=== PATIENT | male | born 1955 | race Caucasian/White ===

== ENCOUNTER 2023-12-18 06:21 | Emergency (ER) | payer OTHER, SELFPAY ==
[2023-12-18] VITALS (8 sets, daily range): BP systolic 121–126; BP diastolic 82–83; PULSE 62–86; TEMP 36.9; O2SAT 94–96; BMI 31.6
--- NOTE | 2023-12-18 06:29 | ECG_ITS ---
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
--- NOTE | 2023-12-18 06:38 | XR_ITS ---
The [address] [address] Patient Name: AUGIE LEAL MRN: [id number] date: 1955 Sex: M Assigned Patient Location: ED.MAIN Current Patient Location: ER Accession/Order Number: [id number] Exam Date: 12/18/2023 06:55 Report Date: 12/18/2023 07:12 At the request of: KEENA MARKER Procedure: XR chest 1V EXAMINATION: XR chest 1V HISTORY: CP COMPARISON: No relevant comparison available. FINDINGS: LUNGS: Mild opacities scattered throughout the right lung, more notable within right lung base. Mild bronchial wall thickening within the central regions bilaterally. VASCULATURE: No increased pulmonary vasculature. PLEURA: No pneumothorax, effusion, or pleural thickening. CARDIAC: No cardiomegaly or cardiac silhouette abnormality. MEDIASTINUM: No visible mass or adenopathy. BONES: No fracture or visible bone lesion. OTHER: Defibrillator pad overlying lower left chest. XR/XR chest 1V IMPRESSION: 1. Underexpanded lungs with diffuse mild right pulmonary infiltrates versus atelectasis. 2. Possible mild bronchiolitis. Electronically authenticated by: OSORIO BUSTILLOS Date: 12/18/2023 07:12
[2023-12-18 06:45] LABS: Basophils Percent Auto 0.2 % (0.2-2.0); Eosinophils Percent Auto 0.1 % (0.9-7.0); Hematocrit 41.6 % (42.0-54.0); Hemoglobin 14.2 g/dL (14.0-18.0); Immature Granulocytes Abs Auto 0.04 10^3/uL (0.00-0.03); Immature Granulocytes Pct Auto 0.4 % (0.0-0.5); Lymphocytes Percent Auto 9.1 % (20.5-60.0); Mean Corpuscular HGB Conc 34.1 g/dL (29.9-35.2); Mean Corpuscular Hemoglobin 31.7 pg (25.9-34.0); Mean Corpuscular Volume 92.9 fL (80.0-94.0); Mean Platelet Volume 9.5 fL (9.5-13.5); Monocytes Percent Auto 9.8 % (1.7-12.0); Neutrophils Absolute Auto 8.4 10^3/uL (1.4-6.5); Neutrophils Percent Auto 80.4 % (43.0-75.0); Platelet Count 217 10^3/uL (150-450); Red Blood Count 4.48 10^6/uL (4.70-6.10); Red Cell Distribution Width 12.8 % (11.0-15.0); White Blood Count 10.5 10^3/uL (4.0-11.0)
--- NOTE | 2023-12-18 06:46 | ED.GENADUL1 ---
HPI HPI - General Adult General Chief complaint: Neck Pain/Injury Stated complaint: neck chest pain Time Seen by Provider: 12/18/23 06:29 Source: patient and family Mode of arrival: walk-in Limitations: no limitations History of Present Illness HPI narrative: This 68 -year-old male presents for evaluation of chest pain that has been present for the past 2 days. It radiates into his back and both shoulders. The patient states that he was in [facility] turkey hunting earlier this week. He was down there for 3 days and he was sleeping in a tent. He states that the tent was called and he ended up sleeping in his car. He thinks that he strained his chest and back while sleeping in his eye. On his way back home from [facility] he started experiencing pain in his chest and shoulders. He has had this pain for the past 48 hours. This morning he started feeling short of breath and came to the emergency department. In the meantime he called his family physician and was prescribed pain medication and a muscle relaxant. The patient has mild nausea. He rates his pain as a 10 out of 10. He denies any dizziness or diaphoresis. He has no abdominal pain. He has no lower extremity pain or swelling. Related Data Allergies Allergy/AdvReac Type Severity Reaction Status Date / Time No Known Drug Allergies Allergy Verified 12/18/23 06:31 Opioid HPI Opioid Management Most Recent Opioid Data: No Data to Display Review of Systems ROS Status of ROS 10 or more systems reviewed and unremarkable except as noted in history and below Exam Narrative Exam Narrative: Nurses note and vital signs reviewed and patient is not hypoxic. General: Alert nontoxic male resting currently on the stretcher, no respiratory distress Skin: Warm, dry, no pallor noted. There is no rash noted. Head: Normocephalic, atraumatic Eye: Normal conjunctiva, no drainage, EOMI. PERRL Ears, Nose, Mouth, and Throat: oral mucosa is moist. Nares patent. Mouth without vesicles. Ear canals patent. Tm's without Erythema Cardiovascular: Regular Rate and Rhythm S1S2, no murmurs,rubs or gallops appreciated, pulses are brisk and equal Respiratory: Patient is in no distress, no accessory muscle use, lungs are clear to auscultation, no wheezing, rales or rhonchi Back: non-tender, no CVA tenderness bilaterally to percussion. GI: Normal bowel sounds, no tenderness to palpation, no masses appreciated. No rebound, guarding, or rigidity noted. Musculoskeletal: The patient has no evidence of calf tenderness, no pitting edema, symmetrical pulses noted bilaterally Neurological: A&O x4, normal speech, resting tremor Psychiatric: Cooperative Constitutional Vital Signs, click to edit/add: Last Vital Signs Temp 98.4 F 12/18/23 06:25 Pulse 62 12/18/23 06:25 Resp 20 12/18/23 06:25 BP 126/82 12/18/23 06:25 Pulse Ox 95 12/18/23 06:25 O2 Del Method Room Air 12/18/23 06:25 Course Vital Signs Vital signs: Vital Signs Temperature 98.4 F 12/18/23 06:25 Pulse Rate 62 12/18/23 06:25 Respiratory Rate 20 12/18/23 06:25 Blood Pressure 126/82 12/18/23 06:25 Pulse Oximetry 95 12/18/23 06:25 Oxygen Delivery Method Room Air 12/18/23 06:25 Temperature 98.4 F 12/18/23 06:25 Pulse Rate 62 12/18/23 06:25 Respiratory Rate 20 12/18/23 06:25 Blood Pressure 126/82 12/18/23 06:25 Pulse Oximetry 95 12/18/23 06:25 Oxygen Delivery Method Room Air 12/18/23 06:25 Medical Decision Making MDM Narrative Medical decision making narrative: This 68-year-old male presents for evaluation of approximately 36-48 hours of anterior chest pain that radiates into his right shoulder area. The symptoms started after being and [place] turkey hunting. He was driving home on Friday when he started experiencing this pain. He came to the emergency department this morning after he started experiencing shortness of breath as well as this pain. He describes it as a dull aching pain 10 out of 10 that radiates into his left shoulder area and bilateral shoulders are uncomfortable. EKG done upon arrival sinus rhythm with a right bundle-branch block and ST segment elevation in leads V2 and V3 V44 and V5 consistent with acute anterior wall myocardial infarction. The case was discussed and EKG was shared with Dr. Pavel Heredia, frozen food selector at [facility], he is accepted for transfer to the cardiac physical laboratory assistant. He was medicated in emergency department with 324 mg baby aspirin, 4 of morphine, so 4 of Zofran, 180 mg of Brillinta and 5000 units of IV heparin. Pacer pads were placed on him and he was placed on the airport location manager while awaiting transfer. ECG Data Attestation: I personally reviewed and interpreted this ECG as follows: (Sinus rhythm at 80 bpm, right bundle-branch block, ST segment elevation in leads V2, V3, V4 and V5 consistent with acute anterior ST segment elevation myocardial infarction) Critical Care Time Critical Care Time Critical Care Time: Yes Total Critical Care Time: 40 Attestation: . Discharge Plan Discharge Chief Complaint: Neck Pain/Injury Clinical Impression: ST elevation (STEMI) myocardial infarction Patient Disposition: [facility] Time of Disposition Decision: 06:46 Discharge Location: [facility]
[2023-12-18] MEDS: ASPIRIN 81 MG TAB.CHEW 324 MG PO (06:48)
[2023-12-18] MEDS: HEPARIN SODIUM (PORCINE) 5,000 UNIT/ML VIAL 5000 UNIT IV (06:52)
[2023-12-18] MEDS: TICAGRELOR 90 MG TABLET 180 MG PO (06:52)
[2023-12-18] MEDS: MORPHINE SULFATE 4 MG/ML VIAL IV (06:53)
[2023-12-18] MEDS: ONDANSETRON PF 4 MG/2 ML VIAL IV (06:53)
[2023-12-18 06:58] LABS: Partial Thromboplastin Time 27.3 sec (22.3-36.2)
[2023-12-18 07:05] LABS: Alanine Aminotransferase 90 U/L (16-63); Albumin Level 3.8 g/dL (3.4-5.0); Alkaline Phosphatase 54 U/L (46-116); Anion Gap 14.3; BUN Creatinine Ratio 14.1; Bilirubin Total 1.4 mg/dL (0.2-1.0); Calcium 9.1 mg/dL (8.5-10.1); Carbon Dioxide 26.5 mmol/L (21.0-32.0); Chloride 96 mmol/L (98-107); Estimated GFR (African America >60 (>=60); Estimated GFR (Non-African Ame >60 (>=60); Globulin 3.7 g/dL; Glucose 157 mg/dL (74-106); Potassium 3.8 mmol/L (3.5-5.1); Sodium 133 mmol/L (136-145); Total Protein 7.5 g/dL (6.4-8.2)
[2023-12-18] MEDS: NITROGLYCERIN 0.4 MG BOTTLE 0.400000000000000022 MG SL (07:10)
[2023-12-18 07:24] LABS: Aspartate Amino Transferase 593 U/L (15-37)
[2023-12-18 07:25] LABS: Troponin I High Sensitivity >125000.0 pg/mL (4.0-76.1)
== END 2023-12-18 07:16 | disposition short-term general hospital (02) ==
LOC: ER 06:47
PROVIDERS: Emergency Provider Emergency Medicine; PCP Family Medicine
DX: I21.3 ST elevation (STEMI) myocardial infarction of unspecified site (principal)
CPT/HCPCS: 36415; 71045; 80053; 84484; 85025; 85730; 93005; 96374; 96375; 99285

== ENCOUNTER 2024-02-18 13:23 | Outpatient (OUT) | payer OTHER, SELFPAY ==
--- NOTE | 2024-02-18 | XR_ITS ---
The [address] [address] Patient Name: AUGIE LEAL MRN: [id number] date: 1955 Sex: M Assigned Patient Location: LAB Current Patient Location: LAB Accession/Order Number: [id number] Exam Date: 02/18/2024 13:40 Report Date: 02/18/2024 19:31 At the request of: ALEKSANDR NUNES Procedure: XR chest 2V EXAM: XR chest 2V HISTORY: cardiomyopathy, ischemic COMPARISON: 12/18/2023 TECHNIQUE: Upright PA and lateral chest x-ray FINDINGS: Interval development of a left pleural effusion. An underlying atelectasis or infiltrate at the left lung base is difficult to exclude. The heart is not enlarged and there is slight prominence of the vasculature. The right lung is essentially clear and there is no evidence of a pneumothorax. The osseous structures are grossly intact. XR/XR chest 2V IMPRESSION: There is now a left pleural effusion present, probably accompanied by a small amount of atelectasis or infiltrate. No other focal infiltrate is identified. The heart is not enlarged and there is some vascular congestion throughout. Electronically authenticated by: SIXTO ACKERMAN Date: 02/18/2024 19:31
--- OUTSIDE RECORDS SUMMARY | 2024-02-18 13:32 | XMS_ITS | CCD ---
Author Organization [facility] Care Team Providers Care Canvas Cutter Machine Name Role Phone ALEXIS TIDWELL Unavailable Unavailable ALEXIS TIDWELL Unavailable Unavailable FAVIAN EDGE Unavailable Unavailable DIANN, ALEXIS Unavailable Unavailable MARIAH CHILDERS Unavailable MD Favian Franks Primary Care Provider DO Souleymane Alexandre Admit Provider [phone] DO Souleymane Alexandre Attending Provider Favian Edge Primary Care Unavailable Souleymane Alexandre Attending Unavailable Souleymane Alexandre Admitting Unavailable Favian Edge MD Primary Care Provider Shy Spears RN Unavailable Unavailable ANUPAM NUNES Attending Unavailable ANUPAM NUNES Attending Unavailable FAVIAN EDGE Attending Unavailable FAVIAN EDGE Attending Unavailable FAVIAN EDGE Attending Unavailable FAVIAN EDGE Attending Unavailable MARIAH ALEXANDRE Attending Unavailable FAVIAN EDGE Primary Care Unavailab ALEKSANDR Flowers Attending Unavailable MARIAH ALEXANDRE Referring Unavailable FAVIAN EDGE Primary Care Unavailab MARIAH Love Referring Unavailable FAVIAN EDGE Primary Care Unavailab samuel Allergies Allergy Classification Reported Allergen(s) Allergy Type Date of Onset Reaction(s) Facility Ticagrelor (1 source) Ticagrelor; Translations: [TICAGRELOR] Drug Allergy 4 [facility] 3 Repository (1 source) Tree and shrub pollen Drug allergy (disorder) ITCHING [facility] Repository (4 sources) Ticagrelor; Translations: [TICAGRELOR] Drug Allergy 4 Shortness of breath [facility] Medications Current Medications Medication Drug Class(es) Dates Sig (Normalized) Sig (Original) [id number] 200 actuat albuterol 0.09 mg/actuat metered dose inhaler (3 sources) beta2-Adrenergic Agonist take 2 puff(s) by inhalation every four to six hours as needed albuterol 90 mcg/actuation inhaler INHALE 2 PUFFS EVERY 4-6 HOURS Inhaled as needed for 90 days Active aspirin 81 mg delayed release oral tablet (4 sources) Platelet Aggregation Inhibitor, Nonsteroidal Anti-inflammatory Drug Start: 12-19-2023 take 1 tablet by mouth once daily aspirin 81 mg EC tablet Take 1 tablet (81 mg) by mouth once daily. 12/19/2023 Active atorvastatin 80 mg oral tablet (2 sources) HMG-CoA Reductase Inhibitor Start: 12-19-2023 take 1 tablet by mouth once daily atorvastatin (Lipitor) 80 mg tablet Take 1 tablet (80 mg) by mouth once daily. 12/19/2023 Active carvedilol 3.125 mg oral tablet (4 sources) alpha-Adrenergic Maycol, beta-Adrenergic Maycol Start: 12-22-2023 take 1 tablet by mouth twice daily carvedilol (Coreg) 3.125 mg tablet Take 1 tablet (3.125 mg) by mouth 2 times daily (morning and late afternoon). 12/22/2023 Active clopidogrel 75 mg oral tablet (4 sources) P2Y12 Platelet Inhibitor Start: 12-25-2023 End: 12-24-2024 take 1 tablet by mouth once daily clopidogrel (Plavix) 75 mg tablet Indications: ASHD (arteriosclerotic heart disease) , ST elevation myocardial infarction (STEMI), unspecified artery (Multi) , History of PTCA Take 1 tablet (75 mg) by mouth once daily. 90 tablet 3 12/25/2023 12/24/2024 Active Start: 12-25-2023 End: 12-25-2023 take 2 tablets by mouth once clopidogrel (Plavix) 300 mg tablet Indications: ASHD (arteriosclerotic heart disease) , ST elevation myocardial infarction (STEMI), unspecified artery (Multi) , History of PTCA Take 2 tablets (600 mg) by mouth 1 time for 1 dose. 2 tablet 12/25/2023 12/25/2023 Active colchicine 0.6 mg oral tablet (2 sources) Start: 12-22-2023 End: 01-01-2024 take 1 tablet by mouth once daily colchicine 0.6 mg tablet Take 1 tablet (0.6 mg) by mouth once daily. 12/22/2023 01/01/2024 Active empagliflozin 10 mg oral tablet (1 source) Sodium-Glucose Cotransporter 2 Inhibitor Start: 02-11-2024 End: 02-10-2025 take 1 tablet by mouth once daily empagliflozin (Jardiance) 10 mg Indications: Cardiomyopathy, ischemic Take 1 tablet (10 mg) by mouth once daily. 30 tablet 11 02/11/2024 02/10/2025 Active losartan potassium 25 mg oral tablet (1 source) Angiotensin 2 Receptor Maycol Start: 02-11-2024 End: 02-10-2025 take 1 tablet by mouth once daily losartan (Cozaar) 25 mg tablet Indications: Cardiomyopathy, ischemic Take 1 tablet (25 mg) by mouth once daily. 30 tablet 11 02/11/2024 02/10/2025 Active nitroglycerin 0.4 mg sublingual tablet (4 sources) Nitrate Vasodilator Start: 12-19-2023 nitroglycerin (Nitrostat) 0.[address] 1 tablet (0.4 mg) under the tongue. 12/19/2023 Active rosuvastatin calcium 5 mg oral tablet (2 sources) HMG-CoA Reductase Inhibitor Start: 01-07-2024 End: 01-06-2025 take 1 tablet by mouth every other day rosuvastatin (Crestor) 5 mg tablet Indications: Hypercholesteremia Take 1 tablet (5 mg) by mouth every other day. 45 tablet 3 01/07/2024 01/06/2025 Active spironolactone 25 mg oral tablet (4 sources) Aldosterone Antagonist Start: 12-22-2023 take 0.5 tablet by mouth twice daily spironolactone (Aldactone) 25 mg tablet Take 0.5 tablets (12.5 mg) by mouth twice a day. 12/22/2023 Active Start: 12-22-2023 take 12.5 mg by mout h once daily Spironolactone Active 12.5 MG PO Daily December 22, 2023 12:00am thiamine 100 mg oral tablet (4 sources) Start: 11-23-2023 take 1 tablet by mouth once daily thiamine 100 mg tablet Take 1 tablet (100 mg) by mouth once daily. 11/23/2023 Active Completed/Discontinued Medications Medication Drug Class(es) Dates Sig (Normalized) Sig (Original) perflutren protein A microsphere (Optison) injection 0.5 mL (1 source) Start: 02-09-2024 End: 02-09-2024 0.5 mL, intravenous, Once, On Fri02/09/24 at 1045, For 1 dose ticagrelor 90 mg oral tablet (2 sources) Start: 12-19-2023 End: 12-25-2023 take 1 tablet by mouth twice daily ticagrelor (Brilinta) 90 mg tablet Take 1 tablet (90 mg) by mouth twice a day. 12/19/2023 12/25/2023 Discontinued (Therapy completed) Problems Active Problems Problem Classification Problem Date Documented Da te Episodic/Chronic Acute myocardial infarction (12 sources) Acute myocardial infarction of anterolateral wall; Translations: [ST elevation (STEMI) myocardial infarction involving other coronary artery of anterior wall] Onset: 12-18-2023 12-18-2023 Chronic Asthma (1 source) Unspecified asthma, uncomplicated; Translations: [UNSPECIFIED ASTHMA UNCOMPLICATED] Onset: 01-22-2018 Chronic Chronic obstructive pulmonary disease and bronchiectasis (1 source) Chronic obstructive pulmonary disease, unspecified; Translations: [COPD UNSPECIFIED] Onset: 01-22-2018 Chronic Congestive heart failure; nonhypertensive (9 sources) Congestive heart failure; Translations: [Heart failure, unspecified] Onset: 12-25-2023 12-25-2023 Chronic Coronary atherosclerosis and other heart disease (20 sources) Ischemic myocardial dysfunction; Translations: [Ischemic cardiomyopathy] Onset: 12-18-2023 12-19-2023 Chronic Coronary atherosclerosis and other heart disease (7 sources) Stented coronary artery; Translations: [Presence of coronary angioplasty implant and graft] Onset: 12-18-2023 12-20-2023 Episodic Disorders of lipid metabolism (8 sources) Mixed hyperlipidemia; Translations: [Dyslipidemia] Onset: 01-22-2018 12-20-2023 Chronic Diverticulosis and diverticulitis (1 source) Diverticulosis of large intestine without perforation or abscess without bleeding; Translations: [DVRTCLOS LG INT NO PERF/ABSC W/O BL] Onset: 01-22-2018 Chronic Esophageal disorders (1 source) Gastro-esophageal reflux disease without esophagitis; Translations: [GERD WITHOUT ESOPHAGITIS] Onset: 01-22-2018 Chronic Hemorrhoids (1 source) Other hemorrhoids; Translations: [OTHER HEMORRHOIDS] Onset: 01-22-2018 Episodic Other lower respiratory disease (7 sources) Dyspnea; Translations: [Shortness of breath] Onset: 12-25-2023 12-25-2023 Episodic Other lower respiratory disease (2 sources) Shortness of breath; Translations: [Shortness of breath] Onset: 12-25-2023 Episodic Other nutritional; endocrine; and metabolic disorders (1 source) Other obesity due to excess calories; Translations: [OTHER OBESITY D/T EXCESS CALORIES] Onset: 01-22-2018 Chronic Other nutritional; endocrine; and metabolic disorders (1 source) Obesity; Translations: [Obesity, unspecified] 12-20-2023 Chronic Other nutritional; endocrine; and metabolic disorders (2 sources) Obesity, unspecified; Translations: [Obesity, unspecified] Onset: 12-18-2023 12-22-2023 Chronic Other nutritional; endocrine; and metabolic disorders (4 sources) Body mass index 30+ - obesity; Translations: [Body mass index (BMI) 32.0-32.9, adult] Onset: 12-25-2023 12-25-2023 Chronic Other nutritional; endocrine; and metabolic disorders (2 sources) Body mass index (BMI) 28.0-28.9, adult; Translations: [Body mass index (BMI) 28.0-28.9, adult] Onset: 02-11-2024 Episodic Other nutritional; endocrine; and metabolic disorders (2 sources) Overweight in adulthood with body mass index of 25 or more but less than 30; Translations: [Body mass index (BMI) 28.0-28.9, adult] Onset: 02-11-2024 02-11-2024 Episodic Dara-; endo-; and myocarditis; cardiomyopathy (except that caused by tuberculosis or sexually transmitted disease) (6 sources) Pericardial effusion; Translations: [Pericardial effusion (HHS-HCC)] Onset: 12-25-2023 12-25-2023 Episodic Pleurisy; pneumothorax; pulmonary collapse (4 sources) Pleural effusion, not elsewhere classified; Translations: [Pleural effusion] Onset: 02-11-2024 Episodic Screening and history of mental health and substance abuse codes (6 sources) Ex-smoker; Translations: [Personal history of nicotine dependence] Onset: 12-25-2023 12-25-2023 Episodic Unclassified (3 sources) Body mass index (BMI) 32.0-32.9, adult; Translations: [BODY MASS INDEX BMI 32.0-32.9 ADULT] Onset: 01-22-2018 Chronic Unclassified (4 sources) Encounter for screening for malignant neoplasm of colon; Translations: [ENC SCREEN MALIG NEOPLASM COLON] Onset: 01-16-2018 Episodic Unclassified (2 sources) Other pericardial effusion (noninflammatory) (HHS-HCC); Translations: [Other pericardial effusion (noninflammatory) ([facility]-HCC)] Onset: 12-25-2023 Past or Other Problems Problem Classification Problem Date Documented Da te Episodic/Chronic Unclassified (3 sources) Onset: 12-25-2023 Resolved: 02-11-2024 12-25-2023 Unclassified (2 sources) Other pericardial effusion (noninflammatory) (HHS-HCC); Translations: [Other pericardial effusion (noninflammatory) ([facility]-HCC)] Onset: 12-25-2023 Results Test Name Value Interpretation Reference Range Facility TRANSTHORACIC ECHO (TTE) [facility] 02-09-2024 TRANSTHORACIC ECHO (TTE) LIMITED [address], [address] [place] [address] TRANSTHORACIC ECHOCARDIOGRAM REPORT Patient Name: AUGIE Kingston Physician: [id number] Rosita Melton MD Study Date: 02/09/2024 Ordering Provider: [id number] MARIAH ALEXANDRE MRN/PID: [id number] Fellow: Nurse: Yeimy Martinez RN Date of /Age: 6 1955 / 69 years Bark Press Operator: Bessie Cabello RDCS, RVT Gender: M Additional Staff: Height: 177.80 cm Admit Date: Weight: 102.97 kg Admission Status: BSA / BMI: 2.20 m2 / 32.57 kg/m2 Department Location: [facility] Blood Pressure: 110 /68 mmHg Study Type: TRANSTHORACIC ECHO (TTE) LIMITED Diagnosis/ICD: Atherosclerotic heart disease of [place] coronary artery without angina pectoris-I25.10; ST elevation (STEMI) myocardial infarction of unspecified site-I21.3; Coronary angioplasty status (PTCA)-Z98.61; Shortness of breath-R06.02; Ischemic cardiomyopathy-I25.5; Heart failure, unspecified-I50.9; Other pericardial effusion (noninflammatory)-I31 .39 Indication: CT and PTCA-11/2023, Former Smoker CPT Codes: Echo Limited-93632 Study Detail: The following Echo studies were performed: 2D and M-Mode. Optison used as a contrast agent for endocardial border definition. Total contrast used for this procedure was 0.5 mL via IV push. PHYSICIAN INTERPRETATION: Left Ventricle: Left ventricular systolic function is moderately to severely decreased, with an estimated ejection fraction of 30%. The left ventricular cavity size is mildly dilated. Left ventricular diastolic filling was not assessed. The mid to distal anteroseptal wall apex and distal inferior wall and distal anterolateral wall appears almost dyskinetic consistent with extensive prior infarct. Left Atrium: The left atrium is mildly dilated. Right Ventricle: The right ventricle is normal in size. There is normal right ventricular global systolic function. Right Atrium: The right atrium is normal in size. Aortic Valve: The aortic valve appears structurally normal. Aortic valve regurgitation was not assessed. Mitral Valve: The mitral valve is normal in structure. Mitral valve regurgitation was not assessed. Tricuspid Valve: The tricuspid valve is structurally normal. Tricuspid regurgitation was not assessed. Pulmonic Valve: The pulmonic valve is structurally normal. The pulmonic valve regurgitation was not assessed. Pericardium: There is no pericardial effusion noted. Aorta: The aortic root is normal. CONCLUSIONS: 1. Left ventricular systolic function is moderately to severely decreased with a 30% estimated ejection fraction. 2. The mid to distal anteroseptal wall apex and distal inferior wall and distal anterolateral wall appears almost dyskinetic consistent with extensive prior infarct. 3. Moderate size left pleural effusion. 4. When compared to previous study the left pleural effusion was not previously reported. QUANTITATIVE DATA SUMMARY: 2D MEASUREMENTS: Normal Ranges: Ao Root d: 3.00 cm (2.0-3.7cm) LAs: 4.90 cm (2.7-4.0cm) RVIDd: 2.86 cm (0.9-3.6cm) IVSd: 1.11 cm (0.6-1.1cm) LVPWd: 0.87 cm (0.6-1.1cm) LVIDd: 5.91 cm (3.9-5.9cm) LVIDs: 4.22 cm LV Mass Index: 108.0 g/m2 LV % FS 28.6 % LV SYSTOLIC FUNCTION BY 2D PLANIMETRY (MOD): Normal Ranges: EF-A4C View: 32.6 % (>=55%) AORTIC VALVE: Normal Ranges: LVOT Diameter: 2.50 cm (1.8-2.4cm) [id number] Rosita Melton MD Electronically signed on 02/10/2024 at 6:10:12 PM Final Normal [facility] Basic Metabolic Panelon 04- Anion gap [Moles/Vol] 15.6 mmol/L High 6.0-15.0 Th e [facility] Comment on above: Performed By: #### B MP, CBC #### [address] Calcium [Mass/Vol] 8.2 mg/dL Low 8.6-10.3 [facility] Comment on above: Performed By: #### B MP, CBC #### [address] Chloride [Moles/Vol] 92 mmol/L Low 98-107 The [facility] Comment on above: Performed By: #### B MP, CBC #### [facility] [address] CO2 [Moles/Vol] 25.1 mmol/L Normal 21.0-31.0 The [facility] Comment on above: Performed By: #### B MP, CBC #### [facility] [address] [place] [address] [place] Creatinine [Mass/Vol] 1.15 mg/dL Normal 0.70-1.30 The [facility] Comment on above: Performed By: #### B MP, CBC #### [facility] [address] [place] [address] [place] Creatinine Clr Calc Pharmacy 75.79 Normal The [facility] Comment on above: Result Comment: PERF ORMED BY: [place] [address] PATHOLOGIST TORCH OPERATOR WAGNER VALLECILLO M.D. Performed By: #### B MP, CBC #### [facility] [address] [place] [address] [place] GFR/1.73 sq M.predicted MDRD (S/P/Bld) [Vol rate/Area] mL/min/{1.73_m2} Normal The [facility] Comment on above: Performed By: #### B MP, CBC #### [address] Glucose [Mass/Vol] 109 mg/dL High 70-100 [facility] Comment on above: Result Comment: [place] Glucose Reference Range is dependent on time and content of last meal. Glucose of more than 200 mg/dL in a nonstressed, ambulatory subject supports the diagnosis of Diabetes Mellitus. ADA recommended reference range Performed By: #### B MP, CBC #### [address] Potassium [Moles/Vol] 3.7 mmol/L Normal 3.5-5.1 The [facility] Comment on above: Performed By: #### B MP, CBC #### [place] [address] [place] Sodium [Moles/Vol] 129 mmol/L Low 136-145 [facility] Comment on above: Performed By: #### B MP, CBC #### [address] Urea nitrogen [Mass/Vol] 33 mg/dL High 7-25 The [facility] Comment on above: Performed By: #### B MP, CBC #### [place] [address] [place] Basophils Auto (Bld) [#/Vol] Ordered By: Souleymane Alexandre on 12-22-2023 Basophils (Bld) [#/Vol] 0.0 10*3/uL 0.0-0.2 [facility] Basophils/100 WBC Auto (Bld) Ordered By: Souleymane Alexandre on 12-22-2023 Basophils/100 WBC (Bld) 0.3 % . F [facility] Calcium [Mass/volume] in Ser um or PlasmaOrdered By: Souleymane Alexandre on 12-22-2023 Calcium [Mass/Vol] 8.2 mg/dL 8.6-10.3 [facility] Carbon dioxide, total [Moles /volume] in Serum or PlasmaOrdered By: Souleymane Alexandre on 12-22-2023 CO2 [Moles/Vol] 25.1 mmol/L 21.0-31.0 [facility] Chloride [Moles/volume] in S yaritza or PlasmaOrdered By: Souleymane Alexandre on 12-22-2023 Chloride [Moles/Vol] 92 mmol/L 98-107 [facility] Complete Blood Count Auto Di ffon 12-22-2023 Basophils (Bld) [#/Vol] 0.0 10*3/uL Normal 0.0-0.2 The [facility] Comment on above: Result Comment: PERF ORMED BY: [place] [address] PATHOLOGIST TORCH OPERATOR WAGNER VALLECILLO M.D. Performed By: #### B MP, CBC #### [address] Basophils/100 WBC (Bld) 0.3 % Normal . T jovany [facility] Comment on above: Performed By: #### B MP, CBC #### [address] Eosinophils (Bld) [#/Vol] 0.1 10*3/uL Normal 0.0-0.45 The [facility] Comment on above: Performed By: #### B MP, CBC #### [place] [address] [place] Eosinophils/100 WBC (Bld) 1.3 % Normal . The [facility] Comment on above: Performed By: #### B MP, CBC #### [address] Erythrocyte distribution width (RBC) [Ratio] 13.4 % Normal 12.0-14.8 The [facility] Comment on above: Performed By: #### B MP, CBC #### [place] [address] [place] Hematocrit (Bld) [Volume fraction] 28.8 % Low 38.8-50.0 The [facility] Comment on above: Performed By: #### B MP, CBC #### [address] Hemoglobin (Bld) [Mass/Vol] 10.1 g/dL Low 13.0-17.0 The [facility] Comment on above: Performed By: #### B MP, CBC #### [address] Lymphocytes (Bld) [#/Vol] 0.9 10*3/uL Low 1.00-4.8 The [facility] Comment on above: Performed By: #### B MP, CBC #### [address] Lymphocytes/100 WBC (Bld) 17.6 % Normal . The [facility] Comment on above: Performed By: #### B MP, CBC #### [address] MCH (RBC) [Entitic mass] 32.6 pg Normal 27.5-35.2 The [facility] Comment on above: Performed By: #### B MP, CBC #### [address] MCV (RBC) [Entitic vol] 92.6 fL Normal 83.5-101 T he [facility] Comment on above: Performed By: #### B MP, CBC #### [address] Mean Corpuscular HGB Conc 35.1 g/dL Normal 32.5-35.6 The [facility] Comment on above: Performed By: #### B MP, CBC #### [address] Monocytes (Bld) [#/Vol] 1.2 10*3/uL High 0.0-0.8 The [facility] Comment on above: Performed By: #### B MP, CBC #### [address] [address] [place] Monocytes/100 WBC (Bld) 23.1 % Normal . T jovany [facility] Comment on above: Performed By: #### B MP, CBC #### [address] Neutrophils (Bld) [#/Vol] 3.0 10*3/uL Normal 1.8-7.7 The [facility] Comment on above: Performed By: #### B MP, CBC #### [address] Neutrophils/100 WBC (Bld) 57.7 % Normal . The [facility] Comment on above: Performed By: #### B MP, CBC #### [facility] [address] NRBC% 0.2 /100{WBC} Normal 0-0.5 The [facility] Comment on above: Performed By: #### B MP, CBC #### [address] Platelet mean volume (Bld) [Entitic vol] 8.7 fL Normal 6.6-10.1 The [facility] Comment on above: Performed By: #### B MP, CBC #### [place] [address] [place] Platelets (Bld) [#/Vol] 197 10*3/uL Normal 150-450 The [facility] Comment on above: Performed By: #### B MP, CBC #### [place] [address] [place] RBC (Bld) [#/Vol] 3.11 10*6/uL Low 3.90-5.60 The [facility] Comment on above: Performed By: #### B MP, CBC #### [place] [address] [place] WBC (Bld) [#/Vol] 5.3 10*3/uL Normal 4.1-10.5 [facility] Comment on above: Performed By: #### B MP, CBC #### [address] [place] [address] [facility] Creatinine [Mass/volume] in Serum or PlasmaOrdered By: Souleymane Alexandre on 12-22-2023 Creatinine [Mass/Vol] 1.15 mg/dL 0.70-1.30 [facility] Eosinophils Auto (Bld) [#/Vo l]Ordered By: Souleymane Alexandre on 12-22-2023 Eosinophils (Bld) [#/Vol] 0.1 10*3/uL 0.0-0.45 [facility] Eosinophils/100 WBC Auto (Bl d)Ordered By: Souleymane Alexandre on 12-22-2023 Eosinophils/100 WBC (Bld) 1.3 % . [facility] Erythrocyte distribution wid th Auto (RBC) [Ratio]Ordered By: Souleymane Alexandre on 12-22-2023 Erythrocyte distribution width (RBC) [Ratio] 13.4 % 12.0-14.8 [facility] Glucose [Mass/volume] in Ser um or PlasmaOrdered By: Souleymane Alexandre on 12-22-2023 Glucose [Mass/Vol] 109 mg/dL 70-100 [facility] Comment on above: ADA recommended refe rence rangeRandom Glucose Reference Range is dependent on time and content of last meal. Glucose of more than 200 mg/dL in a nonstressed, ambulatory subject supports the diagnosis of Diabetes Mellitus. Hematocrit Auto (Bld) [Volum e fraction]Ordered By: Souleymane Alexandre on 12-22-2023 Hematocrit (Bld) [Volume fraction] 28.8 % 38.8-50.0 [facility] Hemoglobin [Mass/volume] in BloodOrdered By: Souleymane Alexandre on 12-22-2023 Hemoglobin (Bld) [Mass/Vol] 10.1 g/dL 13.0-17.0 [facility] Leukocytes [#/volume] correc radha for nucleated erythrocytes in Blood by Automated counOrdered By: Souleymane Alexandre on 12-22-2023 WBC corrected for nucl RBC Auto (Bld) [#/Vol] 5.3 10*3/uL 4.1-10.5 [facility] Lymphocytes Auto (Bld) [#/Vo l]Ordered By: Souleymane Alexandre on 12-22-2023 Lymphocytes (Bld) [#/Vol] 0.9 10*3/uL 1.00-4.8 [facility] Lymphocytes/100 WBC Auto (Bl d)Ordered By: Souleymane Alexandre on 12-22-2023 Lymphocytes/100 WBC (Bld) 17.6 % . [facility] MCH Auto (RBC) [Entitic mass ]Ordered By: Souleymane Alexandre on 12-22-2023 MCH (RBC) [Entitic mass] 32.6 pg 27.5-35.2 [facility] MCHC Auto (RBC) [Mass/Vol]Or dered By: Souleymane Alexandre on 12-22-2023 MCHC (RBC) [Mass/Vol] 35.1 g/dL 32.5-35.6 [facility] MCV Auto (RBC) [Entitic vol] Ordered By: Souleymane Alexandre on 12-22-2023 MCV (RBC) [Entitic vol] 92.6 fL 83.5-101 F [facility] Monocytes Auto (Bld) [#/Vol] Ordered By: Souleymane Alexandre on 12-22-2023 Monocytes (Bld) [#/Vol] 1.2 10*3/uL 0.0-0.8 [facility] Monocytes/100 WBC Auto (Bld) Ordered By: Souleymane Alexandre on 12-22-2023 Monocytes/100 WBC (Bld) 23.1 % . F [facility] Neutrophils Auto (Bld) [#/Vo l]Ordered By: Souleymane Alexandre on 12-22-2023 Neutrophils (Bld) [#/Vol] 3.0 10*3/uL 1.8-7.7 [facility] Neutrophils/100 WBC Auto (Bl d)Ordered By: Souleymane Alexandre on 12-22-2023 Neutrophils/100 WBC (Bld) 57.7 % . [facility] No Panel InformationOrdered By: Souleymane Alexandre on 12-22-2023 Estimated GFR (CKD-EPI) > 60.0 mL/Min [facility] Creatinine Clearance (Chem 75.79 [facility] Nucleated erythrocytes [Pres ence] in Blood by Automated countOrdered By: Souleymane Alexandre on 12-22-2023 Nucleated RBC Auto Ql (Bld) 0.2 /100{WBC} 0-0.5 [facility] Platelet mean volume Auto (B ld) [Entitic vol]Ordered By: Souleymane Alexandre on 12-22-2023 Platelet mean volume (Bld) [Entitic vol] 8.7 fL 6.6-10.1 [facility] Platelets Auto (Bld) [#/Vol] Ordered By: Souleymane Alexandre on 12-22-2023 Platelets (Bld) [#/Vol] 197 10*3/uL 150-450 [facility] Potassium [Moles/volume] in Serum or PlasmaOrdered By: Souleymane Alexandre on 12-22-2023 Potassium [Moles/Vol] 3.7 mmol/L 3.5-5.1 [facility] RBC Auto (Bld) [#/Vol]Ordere d By: Souleymane Alexandre on 12-22-2023 RBC (Bld) [#/Vol] 3.11 10*6/uL 3.90-5.60 [facility] Serum or plasma anion gap de terminationOrdered By: Souleymane Alexandre on 12-22-2023 Anion gap [Moles/Vol] 15.6 mmol/L 6.0-15.0 [facility] Sodium [Moles/volume] in Ser um or PlasmaOrdered By: Souleymane Alexandre on 12-22-2023 Sodium [Moles/Vol] 129 mmol/L 136-145 [facility] Urea nitrogen [Mass/volume] in Serum or PlasmaOrdered By: Souleymane Alexandre on 12-22-2023 Urea nitrogen [Mass/Vol] 33 mg/dL 7-25 [facility] WBC Auto (Bld) [#/Vol]Ordere d By: Souleymane Alexandre on 12-22-2023 WBC (Bld) [#/Vol] 5.3 10*3/uL 4.1-10.5 [facility] Basic Metabolic Panelon 11-24 Anion gap [Moles/Vol] 11.7 mmol/L Normal 6.0-15.0 Th e [facility] Comment on above: Performed By: #### B MP, CBC #### [facility] [address] Calcium [Mass/Vol] 8.6 mg/dL Normal 8.6-10.3 [facility] Comment on above: Performed By: #### B MP, CBC #### [facility] [address] [place] [address] [place] Chloride [Moles/Vol] 93 mmol/L Low 98-107 The [facility] Comment on above: Performed By: #### B MP, CBC #### [facility] [address] [place] [address] [place] CO2 [Moles/Vol] 24.9 mmol/L Normal 21.0-31.0 The [facility] Comment on above: Performed By: #### B MP, CBC #### [facility] [address] [place] [address] [place] Creatinine [Mass/Vol] 1.04 mg/dL Normal 0.70-1.30 The [facility] Comment on above: Performed By: #### B MP, CBC #### [place] [address] [place] Creatinine Clr Calc Pharmacy 83.84 Normal The [facility] Comment on above: Result Comment: PERF ORMED BY: [place] [address] PATHOLOGIST TORCH OPERATOR WAGNER VALLECILLO M.D. Performed By: #### B MP, CBC #### [place] [address] [place] GFR/1.73 sq M.predicted MDRD (S/P/Bld) [Vol rate/Area] mL/min/{1.73_m2} Normal The [facility] Comment on above: Performed By: #### B MP, CBC #### [facility] [address] [place] [address] [place] Glucose [Mass/Vol] 112 mg/dL High 70-100 The [facility] Comment on above: Result Comment: [place] Glucose Reference Range is dependent on time and content of last meal. Glucose of more than 200 mg/dL in a nonstressed, ambulatory subject supports the diagnosis of Diabetes Mellitus. ADA recommended reference range Performed By: #### B MP, CBC #### [facility] [address] [place] [address] [place] Potassium [Moles/Vol] 3.6 mmol/L Normal 3.5-5.1 The [facility] Comment on above: Performed By: #### B MP, CBC #### [address] Sodium [Moles/Vol] 126 mmol/L Low 136-145 [facility] Comment on above: Performed By: #### B MP, CBC #### [address] Urea nitrogen [Mass/Vol] 32 mg/dL High 7-25 The [facility] Comment on above: Performed By: #### B MP, CBC #### [address] Complete Blood Count Auto Di ffon 12-21-2023 Basophils (Bld) [#/Vol] 0.0 10*3/uL Normal 0.0-0.2 The [facility] Comment on above: Result Comment: PERF ORMED BY: [place] [address] PATHOLOGIST TORCH OPERATOR WAGNER VALLECILLO M.D. Performed By: #### B MP, CBC #### [address] Basophils/100 WBC (Bld) 0.2 % Normal . T jovany [facility] Comment on above: Performed By: #### B MP, CBC #### [address] Eosinophils (Bld) [#/Vol] 0.1 10*3/uL Normal 0.0-0.45 The [facility] Comment on above: Performed By: #### B MP, CBC #### [address] Eosinophils/100 WBC (Bld) 1.0 % Normal . The [facility] Comment on above: Performed By: #### B MP, CBC #### [address] Erythrocyte distribution width (RBC) [Ratio] 13.5 % Normal 12.0-14.8 The [facility] Comment on above: Performed By: #### B MP, CBC #### [facility] [address] Hematocrit (Bld) [Volume fraction] 31.3 % Low 38.8-50.0 The [facility] Comment on above: Performed By: #### B MP, CBC #### [address] Hemoglobin (Bld) [Mass/Vol] 10.9 g/dL Low 13.0-17.0 The [facility] Comment on above: Performed By: #### B MP, CBC #### [address] Lymphocytes (Bld) [#/Vol] 0.9 10*3/uL Low 1.00-4.8 The [facility] Comment on above: Performed By: #### B MP, CBC #### [address] Lymphocytes/100 WBC (Bld) 15.6 % Normal . The [facility] Comment on above: Performed By: #### B MP, CBC #### [address] MCH (RBC) [Entitic mass] 32.3 pg Normal 27.5-35.2 The [facility] Comment on above: Performed By: #### B MP, CBC #### [address] MCV (RBC) [Entitic vol] 93.2 fL Normal 83.5-101 T he [facility] Comment on above: Performed By: #### B MP, CBC #### [address] Mean Corpuscular HGB Conc 34.7 g/dL Normal 32.5-35.6 The [facility] Comment on above: Performed By: #### B MP, CBC #### [address] Monocytes (Bld) [#/Vol] 1.0 10*3/uL High 0.0-0.8 The [facility] Comment on above: Performed By: #### B MP, CBC #### [facility] [address] [place] [address] [place] Monocytes/100 WBC (Bld) 17.8 % Normal . T he [facility] Comment on above: Performed By: #### B MP, CBC #### [facility] [address] [place] [address] [place] Neutrophils (Bld) [#/Vol] 3.8 10*3/uL Normal 1.8-7.7 The [facility] Comment on above: Performed By: #### B MP, CBC #### [facility] [address] [place] [address] [place] Neutrophils/100 WBC (Bld) 65.4 % Normal . The [facility] Comment on above: Performed By: #### B MP, CBC #### [facility] [address] [place] [address] [place] NRBC% 0.1 /100{WBC} Normal 0-0.5 The [facility] Comment on above: Performed By: #### B MP, CBC #### [facility] [address] [place] [address] [place] Platelet mean volume (Bld) [Entitic vol] 8.7 fL Normal 6.6-10.1 The [facility] Comment on above: Performed By: #### B MP, CBC #### [facility] [address] [place] [id number] [place] Platelets (Bld) [#/Vol] 188 10*3/uL Normal 150-450 The [facility] Comment on above: Performed By: #### B MP, CBC #### [facility] [address] [place] [address] [place] RBC (Bld) [#/Vol] 3.36 10*6/uL Low 3.90-5.60 The [facility] Comment on above: Performed By: #### B MP, CBC #### [facility] [address] [place] [id number] [place] WBC (Bld) [#/Vol] 5.7 10*3/uL Normal 4.1-10.5 The [facility] Comment on above: Performed By: #### B MP, CBC #### [facility] [address] [place] [address] [place] ECG 12 lead ECGon 12-21-2023 ECG 12 lead ECG [facility] [place] [address] [place] [address] Electrocardiograph Report Signed Patient: Augie Goodman MR#: [id number] 109 : 1955 Acct:[id number] Age/Sex: 68 / M ADM Date: 12/18/23 Loc: Room: [address] [place] [address] Type: ADM IN Attending Dr: Souleymane Alexandre DO Ordering Provider: Souleymane Alexandre DO Date of Service: 12/21/23 ECG/ECG 12 lead ECG: AntLat STEMI Copies to: Test Reason : Blood Pressure : / mmHG Vent. Rate : 063 BPM Atrial Rate : 063 BPM P-R Int : 150 ms QRS Dur : 154 ms QT Int : 430 ms P-R-T Axes : 073 120 097 degrees QTc Int : 440 ms Normal sinus rhythm Right bundle branch block Anterolateral infarct (cited on or before 18-DEC-2023) Inferolateral injury pattern Abnormal ECG When compared with ECG of 20-DEC-2023 07:14, Serial changes of evolving Anterior infarct present Serial changes of evolving Anterolateral infarct present Confirmed by [facility] ([id number] on 12/21/2023 1:12:50 PM Referred By: Electronically Signed By:AMPARO MONTEJO MD [facility] Transcribed By: MUS Signed By Amparo Montejo MD, FACC 12/21/23 1312 Normal The [facility] Basic Metabolic Panelon 11-24 Anion gap [Moles/Vol] 10.9 mmol/L Normal 6.0-15.0 Th e [facility] Comment on above: Performed By: #### B MP, CBC #### [address] Calcium [Mass/Vol] 8.5 mg/dL Low 8.6-10.3 The [facility] Comment on above: Performed By: #### B JAZ, CBC #### [address] Chloride [Moles/Vol] 95 mmol/L Low 98-107 The [facility] Comment on above: Performed By: #### B MP, CBC #### [address] CO2 [Moles/Vol] 25.1 mmol/L Normal 21.0-31.0 The [facility] Comment on above: Performed By: #### B MP, CBC #### [address] Creatinine [Mass/Vol] 1.37 mg/dL High 0.70-1.30 The [facility] Comment on above: Performed By: #### B MP, CBC #### [place] [address] [place] Creatinine Clr Calc Pharmacy 63.17 Normal The [facility] Comment on above: Result Comment: PERF ORMED BY: [place] [address] PATHOLOGIST TORCH OPERATOR WAGNER VALLECILLO M.D. Performed By: #### B MP, CBC #### [place] [address] [place] GFR/1.73 sq M.predicted MDRD (S/P/Bld) [Vol rate/Area] 56.892 mL/min/{1.73_m2} Normal The [facility] Comment on above: Performed By: #### B MP, CBC #### [address] Glucose [Mass/Vol] 125 mg/dL High 70-100 The [facility] Comment on above: Result Comment: [place] Glucose Reference Range is dependent on time and content of last meal. Glucose of more than 200 mg/dL in a nonstressed, ambulatory subject supports the diagnosis of Diabetes Mellitus. ADA recommended reference range Performed By: #### B MP, CBC #### [place] [address] [place] Potassium [Moles/Vol] 4.0 mmol/L Normal 3.5-5.1 The [facility] Comment on above: Performed By: #### B MP, CBC #### [address] Sodium [Moles/Vol] 127 mmol/L Low 136-145 [facility] Comment on above: Performed By: #### B MP, CBC #### [address] Urea nitrogen [Mass/Vol] 33 mg/dL High 7-25 The [facility] Comment on above: Performed By: #### B MP, CBC #### [address] Complete Blood Count Auto Di ffon 12-20-2023 Basophils (Bld) [#/Vol] 0.0 10*3/uL Normal 0.0-0.2 The [facility] Comment on above: Result Comment: PERF ORMED BY: [place] [address] PATHOLOGIST TORCH OPERATOR WAGNER VALLECILLO M.D. Performed By: #### B MP, CBC #### [address] Basophils/100 WBC (Bld) 0.3 % Normal . T [facility] Comment on above: Performed By: #### B MP, CBC #### [address] Eosinophils (Bld) [#/Vol] 0.0 10*3/uL Normal 0.0-0.45 The [facility] Comment on above: Performed By: #### B MP, CBC #### [address] Eosinophils/100 WBC (Bld) 0.1 % Normal . The [facility] Comment on above: Performed By: #### B MP, CBC #### [address] Erythrocyte distribution width (RBC) [Ratio] 14.0 % Normal 12.0-14.8 The [facility] Comment on above: Performed By: #### B MP, CBC #### [address] Hematocrit (Bld) [Volume fraction] 33.9 % Low 38.8-50.0 The [facility] Comment on above: Performed By: #### B MP, CBC #### [address] Hemoglobin (Bld) [Mass/Vol] 11.7 g/dL Low 13.0-17.0 The [facility] Comment on above: Performed By: #### B MP, CBC #### [address] Lymphocytes (Bld) [#/Vol] 1.1 10*3/uL Normal 1.00-4.8 The [facility] Comment on above: Performed By: #### B MP, CBC #### [address] Lymphocytes/100 WBC (Bld) 11.8 % Normal . The [facility] Comment on above: Performed By: #### B MP, CBC #### [address] MCH (RBC) [Entitic mass] 32.5 pg Normal 27.5-35.2 The [facility] Comment on above: Performed By: #### B MP, CBC #### [address] MCV (RBC) [Entitic vol] 94.3 fL Normal 83.5-101 T he [facility] Comment on above: Performed By: #### B MP, CBC #### [address] Mean Corpuscular HGB Conc 34.5 g/dL Normal 32.5-35.6 The [facility] Comment on above: Performed By: #### B MP, CBC #### [address] Monocytes (Bld) [#/Vol] 1.1 10*3/uL High 0.0-0.8 The [facility] Comment on above: Performed By: #### B MP, CBC #### [facility] [address] [place] [address] [place] Monocytes/100 WBC (Bld) 12.1 % Normal . T jovany [facility] Comment on above: Performed By: #### B MP, CBC #### [facility] [address] [place] [address] [place] Neutrophils (Bld) [#/Vol] 7.1 10*3/uL Normal 1.8-7.7 The [facility] Comment on above: Performed By: #### B MP, CBC #### [facility] [address] [place] [address] [place] Neutrophils/100 WBC (Bld) 75.7 % Normal . The [facility] Comment on above: Performed By: #### B MP, CBC #### [facility] [address] NRBC% 0.0 /100{WBC} Normal 0-0.5 The [facility] Comment on above: Performed By: #### B MP, CBC #### [facility] [address] [place] [address] [place] Platelet mean volume (Bld) [Entitic vol] 8.8 fL Normal 6.6-10.1 The [facility] Comment on above: Performed By: #### B MP, CBC #### [facility] [address] [place] [address] [place] Platelets (Bld) [#/Vol] 190 10*3/uL Normal 150-450 The [facility] Comment on above: Performed By: #### B MP, CBC #### [facility] [address] [place] [address] [place] RBC (Bld) [#/Vol] 3.59 10*6/uL Low 3.90-5.60 The [facility] Comment on above: Performed By: #### B MP, CBC #### [facility] [address] [place] [address] [place] WBC (Bld) [#/Vol] 9.3 10*3/uL Normal 4.1-10.5 The [facility] Comment on above: Performed By: #### B MP, CBC #### [address] ECG 12 lead ECGon 12-20-2023 ECG 12 lead ECG [facility] [place] [address] [place], [place] [id number] Electrocardiograph Report Signed Patient: Augie Goodman MR#: [id number] 109 : 1955 Acct:[id number] Age/Sex: 68 / M ADM Date: 12/18/23 Loc: Room: [address] [place] [address] Type: ADM IN Attending Dr: Souleymane Alexandre DO Ordering Provider: Souleymane Alexandre DO Date of Service: 12/20/23 ECG/ECG 12 lead ECG: Post Angioplasty Procedure in AM Copies to: Test Reason : Blood Pressure : / mmHG Vent. Rate : 062 BPM Atrial Rate : 062 BPM P-R Int : 148 ms QRS Dur : 144 ms QT Int : 420 ms P-R-T Axes : 061 085 070 degrees QTc Int : 426 ms Normal sinus rhythm Right bundle branch block Anterolateral infarct (cited on or before 18-DEC-2023) probably acute Inferior injury pattern ACUTE CT Abnormal ECG When compared with ECG of 19-DEC-2023 14:06, No significant change was found Confirmed by PRESTON CHAVEZ [facility], [facility] ([id number]) on 12/20/2023 12:38:23 PM Referred By: Electronically Signed By:AMPARO MONTEJO MD [facility] Transcribed By: MUS Signed By Amparo Montejo MD, FAC 12/20/23 1238 Normal [facility] Troponin I High Sensitivityo n 12-20-2023 Troponin I High Sensitivity 00871.2 pg/mL Off scale high 0.0-20.0 [facility] Comment on above: Result Comment: Crit ical Result I_TnIHS_d:11314.2 Called to and read back by: TARUN NICOLE at: 12/20/2023 06:15:30 by:[id number] PERFORMED BY: [place] [address] PATHOLOGIST TORCH OPERATOR WAGNER VALLECILLO M.D. Performed By: #### H S TROP #### [address] Troponin I.cardiac [Mass/vol ume] in Serum or Plasma by Detection limit <= 0.01 ng/Ordered By: Souleymane Alexandre on 12-20-2023 Troponin I.cardiac DL <= 0.01 ng/mL [Mass/Vol] 37073.2 pg/mL 0.0-20.0 [facility] Comment on above: Critical Result I_Tn IHS_d:90336.2 Called to and read back by: TARUN NICOLE at: 12/20/2023 06:15:30 by:[id number] Basic Metabolic Panelon 11-24 Anion gap [Moles/Vol] 11.0 mmol/L Normal 6.0-15.0 [facility] Comment on above: Order Comment: FASTI NG Y Performed By: #### H S TROP #### [address] Calcium [Mass/Vol] 8.7 mg/dL Normal 8.6-10.3 [facility] Comment on above: Order Comment: FASTI NG Y Performed By: #### H S TROP #### [address] Chloride [Moles/Vol] 96 mmol/L Low 98-107 [facility] Comment on above: Order Comment: FASTI NG Y Performed By: #### H S TROP #### [address] CO2 [Moles/Vol] 25.9 mmol/L Normal 21.0-31.0 The [facility] Comment on above: Order Comment: FASTI NG Y Performed By: #### H S TROP #### [address] Creatinine [Mass/Vol] 0.90 mg/dL Normal 0.70-1.30 [facility] Comment on above: Order Comment: FASTI NG Y Performed By: #### H S TROP #### [address] [place] [address] [place] Creatinine Clr Calc Pharmacy 97.39 Normal [facility] Comment on above: Order Comment: FASTI NG Y Performed By: #### H S TROP #### [place] [address] [place] GFR/1.73 sq M.predicted MDRD (S/P/Bld) [Vol rate/Area] mL/min/{1.73_m2} Normal [facility] Comment on above: Order Comment: FASTI NG Y Performed By: #### H S TROP #### [place] [address] [place] Glucose [Mass/Vol] 142 mg/dL High 70-100 [facility] Comment on above: Order Comment: FASTI NG Y Result Comment: [place] Glucose Reference Range is dependent on time and content of last meal. Glucose of more than 200 mg/dL in a nonstressed, ambulatory subject supports the diagnosis of Diabetes Mellitus. ADA recommended reference range Performed By: #### H S TROP #### [address] Potassium [Moles/Vol] 3.9 mmol/L Normal 3.5-5.1 [facility] Comment on above: Order Comment: FASTI NG Y Performed By: #### H S TROP #### [place] [address] [place] Sodium [Moles/Vol] 129 mmol/L Low 136-145 [facility] Comment on above: Order Comment: FASTI NG Y Performed By: #### H S TROP #### [place] [address] [place] Urea nitrogen [Mass/Vol] 21 mg/dL Normal 7-25 [facility] Comment on above: Order Comment: FASTI NG Y Performed By: #### H S TROP #### [place] [address] [place] Cholesterol [Mass/volume] in Serum or PlasmaOrdered By: Souleymane Alexandre on 12-19-2023 Cholesterol [Mass/Vol] 138 mg/dL 140-200 [facility] Comment on above: Chol less than 200 m g/dl low riskChol 201-239 mg/dl borderline riskChol 240 mg/dl and greater high risk Cholesterol in LDL Calc [Mas s/Vol]Ordered By: Souleymane Alexandre on 12-19-2023 Cholesterol in LDL [Mass/Vol] 71 mg/dL 0-100 [facility] Comment on above: LDL ATP III CLASSIFI CATIONLDL less than 100 mg/dL OptimalLDL 100-129 mg/dL Near or above optimalLDL 130-159 mg/dL Borderline highLDL 160-189 mg/dL HighLDL greater than 189 mg/dL Very high Cholesterol in VLDL Calc [Ma ss/Vol]Ordered By: Souleymane Alexandre on 12-19-2023 Cholesterol in VLDL [Mass/Vol] 9 mg/dL [facility] Complete Blood Count Auto Di ffon 12-19-2023 Basophils (Bld) [#/Vol] 0.2 10*3/uL Normal 0.0-0.2 [facility] Comment on above: Result Comment: PERF ORMED BY: [place] [address] PATHOLOGIST TORCH OPERATOR WAGNER VALLECILLO M.D. Performed By: #### B MP, CBC #### [address] Basophils/100 WBC (Bld) 1.5 % Normal . T jovany [facility] Comment on above: Performed By: #### B MP, CBC #### [facility] [address] [place] [address] [place] Eosinophils (Bld) [#/Vol] 0.0 10*3/uL Normal 0.0-0.45 [facility] Comment on above: Performed By: #### B MP, CBC #### [facility] [address] [place] [address] [place] Eosinophils/100 WBC (Bld) 0.2 % Normal . [facility] Comment on above: Performed By: #### B MP, CBC #### [address] Erythrocyte distribution width (RBC) [Ratio] 13.8 % Normal 12.0-14.8 [facility] Comment on above: Performed By: #### B MP, CBC #### [facility] [address] Hematocrit (Bld) [Volume fraction] 36.1 % Low 38.8-50.0 [facility] Comment on above: Performed By: #### B MP, CBC #### [address] Hemoglobin (Bld) [Mass/Vol] 12.6 g/dL Low 13.0-17.0 [facility] Comment on above: Performed By: #### B MP, CBC #### [address] Lymphocytes (Bld) [#/Vol] 0.9 10*3/uL Low 1.00-4.8 [facility] Comment on above: Performed By: #### B MP, CBC #### [address] Lymphocytes/100 WBC (Bld) 8.3 % Normal . [facility] Comment on above: Performed By: #### B MP, CBC #### [address] MCH (RBC) [Entitic mass] 32.4 pg Normal 27.5-35.2 [facility] Comment on above: Performed By: #### B MP, CBC #### [address] MCV (RBC) [Entitic vol] 92.9 fL Normal 83.5-101 T he [facility] Comment on above: Performed By: #### B MP, CBC #### [address] Mean Corpuscular HGB Conc 34.9 g/dL Normal 32.5-35.6 [facility] Comment on above: Performed By: #### B MP, CBC #### [address] Monocytes (Bld) [#/Vol] 1.1 10*3/uL High 0.0-0.8 [facility] Comment on above: Performed By: #### B MP, CBC #### [facility] [address] [place] [address] [place] Monocytes/100 WBC (Bld) 10.8 % Normal . T jovany [facility] Comment on above: Performed By: #### B MP, CBC #### [facility] [facility] [address] [place] [address] [place] Neutrophils (Bld) [#/Vol] 8.3 10*3/uL High 1.8-7.7 The [facility] Comment on above: Performed By: #### B MP, CBC #### [facility] [address] [place] [address] [place] Neutrophils/100 WBC (Bld) 79.2 % Normal . The [facility] Comment on above: Performed By: #### B MP, CBC #### [facility] [address] NRBC% 0.0 /100{WBC} Normal 0-0.5 The [facility] Comment on above: Performed By: #### B MP, CBC #### [facility] [address] [place] [address] [place] Platelet mean volume (Bld) [Entitic vol] 8.0 fL Normal 6.6-10.1 The [facility] Comment on above: Performed By: #### B MP, CBC #### [facility] [address] [place] [id number] [place] Platelets (Bld) [#/Vol] 176 10*3/uL Normal 150-450 The [facility] Comment on above: Performed By: #### B MP, CBC #### [facility] [address] [place] [address] [place] RBC (Bld) [#/Vol] 3.88 10*6/uL Low 3.90-5.60 The [facility] Comment on above: Performed By: #### B MP, CBC #### [facility] [address] [place] [address] [place] WBC (Bld) [#/Vol] 10.4 10*3/uL Normal 4.1-10.5 The [facility] Comment on above: Performed By: #### B MP, CBC #### [address] ECG 12 lead ECGon 12-19-2023 ECG 12 lead ECG [facility] [place] [address] Electrocardiograph Report Signed Patient: Augie Goodman MR#: [id number] 109 : 1955 Acct:[id number] Age/Sex: 68 / M ADM Date: 12/18/23 Loc: Room: [address] [place] [address] Type: ADM IN Attending Dr: Souleymane Alexandre DO Ordering Provider: Souleymane Alexandre DO Date of Service: 12/19/23 ECG/ECG 12 lead ECG: Post Angioplasty Procedure Copies to: Test Reason : Blood Pressure : / mmHG Vent. Rate : 067 BPM Atrial Rate : 067 BPM P-R Int : 152 ms QRS Dur : 140 ms QT Int : 398 ms P-R-T Axes : 048 146 070 degrees QTc Int : 420 ms Normal sinus rhythm Right bundle branch block Anterolateral infarct (cited on or before 18-DEC-2023), recent Abnormal ECG When compared with ECG of 19-DEC-2023 06:56, (Unconfirmed) No significant change was found Confirmed by Gabriela Kelly ([id number]) on 12/19/2023 10:58:55 PM Referred By: Electronically Signed By:Gabriela Kelly Transcribed By: MUS Signed By Gabriela Kelly MD 4 5449 Normal The [facility] ECG 12 lead ECG [facility] [place] [address] Electrocardiograph Report Signed Patient: Augie Goodman MR#: [id number] 109 : 1955 Acct:[id number] Age/Sex: 68 / M ADM Date: 12/18/23 Loc: Room: [address] [place] [address] Type: ADM IN Attending Dr: Souleymane Alexandre DO Ordering Provider: Souleymane Alexandre DO Date of Service: 12/19/23 ECG/ECG 12 lead ECG: Post Angioplasty Procedure in AM Copies to: Test Reason : Blood Pressure : 099/063 mmHG Vent. Rate : 072 BPM Atrial Rate : 072 BPM P-R Int : 150 ms QRS Dur : 132 ms QT Int : 408 ms P-R-T Axes : 055 113 076 degrees QTc Int : 446 ms Normal sinus rhythm Right bundle branch block Anterolateral infarct (cited on or before 18-DEC-2023) Abnormal ECG When compared with ECG of 18-DEC-2023 10:38, No significant change was found Confirmed by Gabriela Kelly ([id number]) on 12/19/2023 10:58:31 PM Referred By: Electronically Signed By:Gabriela Kelly Transcribed By: MUS Signed By Gabriela Kelly MD 1765 Normal The [facility] REPLACED BY [facility] echo transthoracicon REPLACED BY [facility] echo transthoracic [facility] [place] [address] Echocardiogram Signed Patient: Augie Goodman MR#: [id number] 109 : 1955 Acct:[id number] Age/Sex: 68 / M ADM Date: 12/18/23 Loc: Room: [address] [place] [address] Type: ADM IN Attending Dr: Souleymane Alexandre DO Ordering Provider: Souleymane Alexandre DO Date of Service: 12/19/23 REPLACED BY [facility]/REPLACED BY [facility] echo transthoracic: AntLat STEMI Copies to: MD Souleymane Mejia DO Weight: 223 lb Performed By: Dede Godinez RDCS BSA: 2.2 m2 BP: 89/57 mmHg HR: 74 Reason For Study: AntLat STEMI History: Former Smoker. Interpretation Summary Ejection Fraction = 30-35%. The LV ejection fraction is moderately decreased . The left ventricular size and thickness are normal. Akinetic anteror, anteroseptal and apical uribe. Hypokinesis of the mid-distal anterolateral and distal inferior uribe. There is no comparison study available. Procedure/Quality: A two-dimensional transthoracic echocardiogram with color flow, Doppler and injection of contrast agent Definity was performed. The study was technically good in quality. Left Ventricle: The left ventricular size and thickness are normal. Ejection Fraction = 30-35%. The LV ejection fraction is moderately decreased . Akinetic anteror, anteroseptal and apical uribe. Hypokinesis of the mid-distal anterolateral and distal inferior uribe. No left ventricular thrombus or mass is seen. Left Atrium: The left atrium appears normal in size. Right Atrium: The right atrium appears normal in size. Right Ventricle: The right ventricle is normal in size and function. Aortic Valve: The aortic valve is normal in structure. No hemodynamically significant valvular aortic stenosis. No aortic regurgitation is present. Mitral Valve: The mitral valve is normal in structure. No significant mitral valve stenosis. There is no mitral regurgitation noted. Tricuspid Valve: The tricuspid valve is not well visualized. No tricuspid regurgitation. Pulmonic Valve: The pulmonic valve is not well visualized. Arteries: The aortic root is normal size. Borderline dilated ascending aorta. Pericardium/Pleura: No pericardial effusion seen. There is no pleural effusion. IVC/Hepatic Veins: The IVC is dialted with an abnormal collapsibility index, this suggestive of increased right atrial pressure. Measurements with Normals IVSd: 1.2 cm (0.7-1.1 cm)LVIDd: 4.8 cm (3.7-5.4 cm) LVPWd: 1.4 cm (0.7-1.1 cm)LVIDs: 3.4 cm (2.3-3.6 cm) LA dimension: 3.8 cm (2.3-4.0 cm)Ao root diam: 3.4 cm(2.0-3.6 cm) asc Aorta Diam: 3.8 cm(2.1-3.4cm) Doppler with Normals RVSP(TR): 29.7 mmHg (18-35mmHg) LV V1 max: 99.9 cm/sec (0.7-1.7m/s)MV E max francis: 56.1 cm/sec(0.8-1.3m/s) MV A max francis: 67.7 cm/sec(0.0-0.0m/s) MV E/A: 0.83 (<1.5) MMode/2D Measurements Calculations TAPSE: 1.7 cm FS: 29.9 % Ao root area: LVOT diam: 2.1 cm RV S Francis: EDV(Teich): 9.2 cm2 LVOT area: 3.4 cm2 12.7 cm/sec 109.4 ml ESV(Teich): 47.1 ml EF(Teich): 57.0 % __ LVLd ap4: 8.3 cm SV(MOD-sp4): LAV(MOD-sp4): LA A2 area: 13.8 cm2 EDV(MOD-sp4): 51.0 ml 35.1 ml 169.0 ml LAV(MOD-sp2): LA A4 area: 13.8 cm2 LVLs ap4: 7.5 cm 34.6 ml LA length (vol): ESV(MOD-sp4): 4.4 cm 118.0 ml LA vol: 36.7 ml EF(MOD-sp4): 30.2 % LA vol index: 16.9 ml/m2 Doppler Measurements Calculations MV dec time: E/E' lat: 7.3 MV dec slope: Ao V2 max: 0.16 sec E/E' med: 10.3 115.4 cm/sec 365.7 cm/sec2 Ao max P.3 mmHg Ao mean P.1 mmHg Ao V2 mean: 83.5 cm/sec Ao V2 VTI: 19.6 cm KATHARINA(I,D): 3.0 cm2 KATHARINA(V,D): 2.9 cm2 __ LV V1 max PG: TV max PG: TR max francis: 4.0 mmHg 22.0 mmHg 232.9 cm/sec LV V1 mean PG: TR max P.7 mmHg 2.4 mmHg RAP systole: 8.0 mmHg LV V1 mean: 74.7 cm/sec LV V1 VTI: 17.6 cm Transcribed By: SCV Performed At: 12/19/23 0905 Signed By: Joe Kirby MD 12/19/23 1610 Normal The [facility] Lipid Panelon 12-19-2023 Cholesterol [Mass/Vol] 138 mg/dL Low 140-200 Th e [facility] Comment on above: Order Comment: FASTI NG Y Result Comment: Chol less than 200 mg/dl low risk Chol 201-239 mg/dl borderline risk Chol 240 mg/dl and greater high risk Performed By: #### H S TROP #### [facility] [address] Cholesterol in HDL [Mass/Vol] 58 mg/dL Normal 23-92 The [facility] Comment on above: Order Comment: FASTI NG Y Result Comment: HDL CHOL ATP-III CLASSIFICATION Cardiovascular Risk HDL > or equal to 60 mg/dL LOW HDL < 40 mg/dL HIGH Performed By: #### H S TROP #### [facility] [address] Cholesterol.total/Choles terol in HDL [Mass ratio] 2.4 {ratio} Normal <5.0 The [facility] Comment on above: Order Comment: FASTI NG Y Result Comment: PERF ORMED BY: [place] [address] PATHOLOGIST TORCH OPERATOR WAGNER VALLECILLO M.D. Performed By: #### H S TROP #### [address] LDL Cholesterol,Calculated 71 mg/dL Normal 0-100 The [facility] Comment on above: Order Comment: FASTI NG Y Result Comment: LDL ATP III CLASSIFICATION LDL less than 100 mg/dL Optimal LDL 100-129 mg/dL Near or above optimal LDL 130-159 mg/dL Borderline high LDL 160-189 mg/dL High LDL greater than 189 mg/dL Very high Performed By: #### H S TROP #### [facility] [address] [place] [id number] [place] Triglyceride w/Reflex 47 mg/dL Normal 0-149 The [facility] Comment on above: Order Comment: FASTI NG Y Result Comment: TRIG ATP III CLASSIFICATION TRIG less than 150 mg/dL Normal TRIG 150-199 mg/dL Borderline high TRIG 200-500 mg/dL High TRIG greater than 500 mg/dL Very high Standard traceable to the Center for Disease Conrtrol and Prevention (CDC) test method. Performed By: #### H S TROP #### [facility] [address] VLDL CHOLESTEROL 9 mg/dL Normal The [facility] Comment on above: Order Comment: JANINA Moreland Performed By: #### H S TROP #### [facility] [address] Serum or plasma high density lipoprotein (HDL) cholesterol measurementOrdered By: Souleymane Alexandre on 12-19-2023 Cholesterol in HDL [Mass/Vol] 58 mg/dL - [facility] Comment on above: HDL CHOL ATP-III CLA SSIFICATION Cardiovascular RiskHDL > or equal to 60 mg/dL LOWHDL < 40 mg/dL HIGH Serum or plasma total choles terol/high density lipoprotein (HDL) cholesterol mass ratOrdered By: Souleymane Alexandre on 12-19-2023 Cholesterol.total/Choles terol in HDL [Mass ratio] 2.4 {ratio} <5.0 [facility] Triglyceride [Mass/volume] i n Serum or PlasmaOrdered By: Souleymane Alexandre on 12-19-2023 Triglyceride [Mass/Vol] 47 mg/dL 0-149 F [facility] Comment on above: TRIG ATP III CLASSIF ICATIONTRIG less than 150 mg/dL NormalTRIG 150-199 mg/dL Borderline highTRIG 200-500 mg/dL High TRIG greater than 500 mg/dL Very highStandard traceable to the Center for Disease Conrtrol and Prevention (CDC) test method. Troponin I High Sensitivityo n 12-19-2023 Troponin I High Sensitivity 52237.4 pg/mL Off scale high 0.0-20.0 The [facility] Comment on above: Result Comment: Crit ical Result I_TnIHS_d:32108.4 Called to and read back by: TARUN NICOLE at: 12/19/2023 05:40:57 by:HORACE PERFORMED BY: [place] [address] PATHOLOGIST TORCH OPERATOR WAGNER VALLECILLO M.D. Performed By: #### H S TROP #### [facility] [address] [place] [address] ECG 12 lead ECGon 12-18-2023 ECG 12 lead ECG [facility] Main [place] [id number] Electrocardiograph Report Signed Patient: Augie Goodman MR#: [id number] 109 : 1955 Acct:[id number] Age/Sex: 68 / M ADM Date: 12/18/23 Loc: Room: [address] [place] [address] Type: ADM IN Attending Dr: Souleymane Alexandre DO Ordering Provider: Souleymane Alexandre DO Date of Service: 12/18/23 ECG/ECG 12 lead ECG: chest pain post STEMI Copies to: Test Reason : Blood Pressure : 104/055 mmHG Vent. Rate : 080 BPM Atrial Rate : 080 BPM P-R Int : 146 ms QRS Dur : 136 ms QT Int : 398 ms P-R-T Axes : 047 143 067 degrees QTc Int : 459 ms Normal sinus rhythm Right bundle branch block ACUTE CT / STEMI Acute Anteroseptal infarct Abnormal ECG When compared with ECG of 18-DEC-2023 09:28, (Unconfirmed) Serial changes of Anterior infarct present Confirmed by Gabriela Kelly ([id number]) on 12/18/2023 5:37:07 PM Referred By: Electronically Signed By:Gabriela Kelly Transcribed By: MUS Signed By Gabriela Kelly MD 4 1737 Normal The [facility] ECG 12 lead ECG [facility] Main [place] [id number] Electrocardiograph Report Signed Patient: Augie Goodman MR#: [id number] 109 : 1955 Acct:[id number] Age/Sex: 68 / M ADM Date: 12/18/23 Loc: Room: [address] [place] [address] Type: ADM IN Attending Dr: Souleymane Alexandre DO Ordering Provider: Souleymane Alexandre DO Date of Service: 12/18/23 ECG/ECG 12 lead ECG: Post Angioplasty Procedure Copies to: Test Reason : Blood Pressure : 128/074 mmHG Vent. Rate : 082 BPM Atrial Rate : 082 BPM P-R Int : 144 ms QRS Dur : 134 ms QT Int : 396 ms P-R-T Axes : 046 149 059 degrees QTc Int : 462 ms Normal sinus rhythm Right bundle branch block ACUTE CT / STEMI Acute Anteroseptal infarct Abnormal ECG No previous ECGs available Confirmed by Gabriela Kelly ([id number]) on 12/18/2023 5:35:52 PM Referred By: Electronically Signed By:Gabriela Kelly Transcribed By: MUS Signed By Gabriela Kelly MD 4 1735 Normal The [facility] Troponin I High Sensitivityo n 12-18-2023 Troponin I High Sensitivity 98632.0 pg/mL Off scale high 0.0-20.0 The [facility] Comment on above: Result Comment: Crit ical Result I_TnIHS_d:85907.0 Called to and read back by: RONALD ROWE at: 12/18/2023 18:24:43 by:[id number] PERFORMED BY: [place] [address] PATHOLOGIST TORCH OPERATOR WAGNER VALLECILLO M.D. Performed By: #### H S TROP #### [facility] [address] [place] [address] Troponin I High Sensitivity 388232.5 pg/mL Off scale high 0.0-20.0 [facility] Comment on above: Result Comment: Crit ical Result I_TnIHS_d:545257.5 Called to and read back by: RAINER BONNER at: 12/18/2023 14:41:45 by:[id number] PERFORMED BY: [place] [address] PATHOLOGIST TORCH OPERATOR WAGNER VALLECILLO M.D. Performed By: #### B MP, CBC #### [facility] [address] [place] [address] Troponin I High Sensitivity 872495.5 pg/mL Off scale high 0.0-20.0 The [facility] Comment on above: Result Comment: Crit ical Result I_TnIHS_d:561412.5 Called to and read back by: LAZARA TERRELL at: 12/18/2023 12:09:39 by:LFM PERFORMED BY: [place] [address] PATHOLOGIST TORCH OPERATOR WAGNER VALLECILLO M.D. Performed By: #### B MP, CBC #### [facility] [address] [place] [address] Troponin I High Sensitivity 082956.6 pg/mL Off scale high 0.0-20.0 [facility] Comment on above: Result Comment: Crit ical Result I_TnIHS_d:969584.6 Called to and read back by: JAILENE BONNER at: 12/18/2023 10:55:07 by:LFM PERFORMED BY: [place] [address] PATHOLOGIST TORCH OPERATOR WAGNER VALLECILLO M.D. Performed By: #### H S TROP #### [address] MR BRAIN WO CONTRASTon 06-30 MR BRAIN WO CONTRAST EXAM: MR BRAIN WO CONTRAST History: Intention tremor Technique: Multiplanar multisequence MRI of the brain was performed without contrast. Comparison: None available Findings: A few tiny scattered foci of hyperintense T2/FLAIR signal within the bilateral supratentorial white matter are nonspecific but are most likely due to chronic small vessel ischemic changes in a patient of this age. Prominence of the sulci and ventricles compatible with mild generalized parenchymal volume loss. No acute hemorrhage, mass, mass effect, midline shift, or abnormal extra-axial fluid collection. Midline structures are within normal limits. The posterior fossa is within normal limits. There is no diffusion restriction. No susceptibility artifact is identified on the gradient echo sequence. The major intracranial vascular flow voids are maintained. Cranial nerves 7/8 complexes appear grossly unremarkable. Mild paranasal sinus mucosal thickening. The bilateral mastoid air cells are clear. IMPRESSION: No acute intracranial process. Generalized parenchymal volume loss and nonspecific white matter findings most compatible with chronic small vessel ischemic changes in a patient of this age. ELECTRONICALLY SIGNED BY: Christophe Vasquez, DO Normal Not Available MRI Knee w/o Lefton 10-24-19 MRI Knee w/o Left HISTORY: Chronic increasing left knee pain with decreased range of motion. Injections without much improvement. Denies recent injury. No prior left knee surgery. Concern for medial meniscal tear. TECHNIQUE: Routine non-contrast MRI of the knee LEFT COMPARISON: Radiographs 09/24/2021 RESULT: MENISCI: Medial Meniscus: Intact Lateral Meniscus: Intact LIGAMENTS: ACL, PCL, MCL, LCL complex: Intact. CARTILAGE: [id number] full-thickness fissuring involving the patellar apex. Medial and lateral compartment cartilage appears preserved. TENDONS: Distal quadriceps, patellar tendon, and popliteus tendon intact. BONES AND MARROW: No evidence of fracture or bone marrow replacing process. Subchondral cystic change underlying the patellar chondral finding as above. MUSCLES: Muscle bulk and signal intensity are normal. JOINT FLUID AND SYNOVIUM: Small joint effusion. No synovitis. No Santos's cyst. OTHER: No other significant abnormality. IMPRESSION: Intact menisci and ligaments. 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 Report reported and signed by Maximus Lopez on 10/23/2021 0952 Normal [facility] Specialist OPERATIVE NOTEon 01-16-2018 OPERATIVE NOTE OPERATIVE NOTEOPERATION DATE: 1-27-74MEEMZFCWVG:IV sedation, MAC.PREOPERATIVE DIAGNOSIS:Screening colonoscopy.POSTOPERA TIVE DIAGNOSIS:1. Diverticulosis coli.2. Internal hemorrhoids.3. Unremarkable prostate in size, shape, and position.PROCEDURE NAME:1. Colonoscopy to the cecum.2. Digital rectal examination with prostate examination.ESTIMATED BLOOD LOSS: None.COMPLICATIONS: None.DISPOSITION: To the Recovery Room in stable condition.PROCEDURE: The patient was brought to the Endoscopy Suite where monitoringdevices were attached. He was sedated, prepped, and draped in the usual fashionfor this procedure. A digital rectal examination demonstrated no significantmucosal abnormalities. There were no thrombotic hemorrhoids. Palpation of theprostate demonstrated no nodularity or hypertrophy. It was ballotable andmovable. An Olympus colonoscope was then inserted into the rectal vault andadvanced under direct visualization through to the cecum. The scope, whichstopped just proximal to the cecum, demonstrated where seen, an unremarkablececum. The ascending colon, transverse, descending, and sigmoid colons wereunremarkable. In the rectal vault, the scope was retroverted and a derek ofnon-thrombotic, non-prolapsing, grade 2 hemorrhoids were appreciated.Throughou t the colonoscopy there were no tumors, polyps, ulcers, inflammation,intrinsi c, or extrinsic mass effects. The scope was withdrawn. The patienttolerated the procedure well and was taken to the Recovery Room in stablecondition. He should undergo repeat colonoscopy in 10 years. Normal The [facility] Vital Signs Date Time Vital Sign Value Performing Clinician Facility 02-11-2024 10:23-0400 Body height 177.8 cm Aleksandr Mccormack FIELD EXAMINER-FIELD INSTRUCTOR Work Phone: [facility] 02-11-2024 10:23-0400 Body mass index (BMI) [Ratio] 28.84 kg/m2 Aleksandrjacque Mccormack FIELD EXAMINER-FIELD INSTRUCTOR Work Phone: [facility] 02-11-2024 10:23-0400 Body weight 91.17 kg Aleksandr Mccormack FIELD EXAMINER-FIELD INSTRUCTOR Work Phone: [facility] 02-11-2024 10:23-0400 Diastolic blood pressure 80 mm[Hg] Aleksandr Mccormack FIELD EXAMINER-FIELD INSTRUCTOR Work Phone: [facility] 02-11-2024 10:23-0400 Heart rate 68 /min Aleksandr Mccormack FIELD EXAMINER-FIELD INSTRUCTOR Work Phone: [facility] 02-11-2024 10:23-0400 Systolic blood pressure 110 mm[Hg] Aleksandr Mccormack FIELD EXAMINER-FIELD INSTRUCTOR Work Phone: [facility] 02-09-2024 09:38-0400 Body height 177.[address] 02-09-2024 09:38-0400 Body mass index (BMI) [Ratio] 32.57 kg/m2 [address] 02-09-2024 09:38-0400 Body weight 102.[address] 02-09-2024 09:38-0400 Diastolic blood pressure 68 mm[Hg] [address] 02-09-2024 09:38-0400 Systolic blood pressure 110 mm[Hg] [address] 12-25-2023 13:38-0400 Body height 177.8 cm Mariah Alexandre DO Work Phone: [facility] 12-25-2023 13:38-0400 Body mass index (BMI) [Ratio] 32.57 kg/m2 Mariah Alexandre DO Work Phone: [facility] 12-25-2023 13:38-0400 Body weight 102.97 kg Mariah Alexandre DO Work Phone: [facility] 12-25-2023 13:38-0400 Diastolic blood pressure 78 mm[Hg] Mariah Alexandre DO Work Phone: [facility] 12-25-2023 13:38-0400 Heart rate 64 /min Mariah Alexandre DO Work Phone: [facility] 12-25-2023 13:38-0400 Systolic blood pressure 108 mm[Hg] Mariah Alexandre DO Work Phone: [facility] 12-22-2023 13:00-0400 Body temperature 98.5 [degF] MD Favian Edge Work Phone: [facility] 12-22-2023 13:00-0400 Diastolic blood pressure 52 mm[Hg] MD Favian Edge Work Phone: [facility] 12-22-2023 13:00-0400 Heart rate 62 /min MD Favian Edge Work Phone: [facility] 12-22-2023 13:00-0400 Respiratory rate 20 /min MD Favian Edge Work Phone: [facility] 12-22-2023 13:00-0400 SaO2% (BldA) [Mass fraction] 98 % MD Favian Edge Work Phone: [facility] 12-22-2023 13:00-0400 Systolic blood pressure 109 mm[Hg] MD Favian Edge Work Phone: [facility] 12-22-2023 06:12-0400 Body weight 101.8 kg MD Favian Edge Work Phone: [facility] 12-19-2023 18:00-0400 Inhaled oxygen flow rate 2 L/min MD Favian Edge Work Phone: [facility] 12-18-2023 09:33-0400 Body height 177.8 cm MD Favian Edge Work Phone: [facility] Encounters Encounter Date Encounter Type Care Provider Facility Start: 02-11-2024 End: 02-11-2024 Office outpatient visit 25 minutes Aleksandr Mccormack FIELD EXAMINER-FIELD INSTRUCTOR Work Phone: [facility] Comment on above: Cardiomyopathy, isch emic (Primary Dx); ASHD (arteriosclerotic heart disease); Pericardial effusion (HHS-HCC); Mixed hyperlipidemia; BMI 28.0-28.9,adult; Pleural effusion Start: 02-11-2024 End: 02-11-2024 ambulatory [facility]ulatory Start: 02-09-2024 End: 02-09-2024 Subsequent hospital visit by physician Daija Diop Echo/Vasc Room 2 [facility] Comment on above: ASHD (arteriosclerot ic heart disease); ST elevation myocardial infarction (STEMI), unspecified artery (Multi); History of PTCA; Shortness of breath; Cardiomyopathy, ischemic; Congestive heart failure, unspecified HF chronicity, unspecified heart failure type (Multi); Pericardial effusion (HHS-HCC) Start: 02-09-2024 End: 02-09-2024 ambulatory MARIAH Phelps BALDOMERO [facility] Start: 01-14-2024 End: 01-14-2024 ambulatory FAVIAN EDGE Not Available Start: 12-29-2023 End: 12-29-2023 ambulatory [facility] Not Available Start: 12-25-2023 End: 12-25-2023 Transitional care manage srvc 7 day discharge Mariah Alexandre DO Work Phone: [facility] Comment on above: ASHD (arteriosclerot ic heart disease); ST elevation myocardial infarction (STEMI), unspecified artery (Multi); History of PTCA; Shortness of breath; Cardiomyopathy, ischemic; Congestive heart failure, unspecified HF chronicity, unspecified heart failure type (Multi); BMI 32.0-32.9,adult; Former smoker; Pericardial effusion ([facility]) Start: 12-25-2023 End: 12-25-[address] [facility] Ambulatory Start: 12-18-2023 Non-patient / Non-visit MD L[facility] Work Phone: [facility] Work Phone: Start: 12-18-2023 End: 12-22-2023 Evaluation and management of inpatient Favian Edge Facility:[facility] Start: 12-18-2023 End: 12-22-2023 Evaluation and management of inpatient MD Favian Edge Work Phone: [facility] Work Phone: Start: 11-26-2023 End: 11-26-2023 ambulatory FAVIAN EDGE Not Available Start: 11-12-2023 End: 11-12-2023 ambulatory FAVIAN EDGE Not Available Start: 10-27-2023 End: 10-27-2023 ambulatory ANUPAM NUNES Not Available Start: 09-01-2023 End: 09-01-2023 ambulatory ANUPAM NUNES Not Available Start: 01-16-2018 End: 01-16-2018 Ambulatory ALEXIS DIANN Facility:H1 Procedures Date Procedure Procedure Detail Performing Clinician Start: 12-25-2023 History of percutane ous transluminal coronary angioplasty History of PTCA [facility] Work Phone: Start: 12-19-2023 CL Closure Device Placement 0 MD Favian Edge Work Phone: Start: 12-19-2023 CL PTCA Ea Add RCA MD Marko Edge Work Phone: Start: 12-19-2023 CL Stent 1st Vessel CX IVONNE MD Favian Edge Work Phone: Start: 12-19-2023 CL Stent 1st Vessel RCA IVONNE MD Favian Edge Work Phone: Start: 12-18-2023 MD Favian Edge Work Phone: Start: 12-18-2023 CL Coronary Thrombol ysis IV MD Favian Edge Work Phone: Start: 12-18-2023 CL Iliac/Fem w/LHC MD Marko Edge Work Phone: Start: 12-18-2023 CL LHC & COR Angio MD Marko Edge Work Phone: Start: 12-18-2023 CL PCI AMI 1st Vesse l LAD IVONNE MD Favian Edge Work Phone: Start: 11-05-2023 Lipid 1996 panel - S yaritza or Plasma Mariah Alexandre DO Work Phone: Start: 01-16-2018 Colonoscopy Daija 2 History of percutane ous transluminal coronary angioplasty History of PTCA Daija 2 Plan of Treatment Date Care Activity Detail Author Start: 11-04-2028 Lipid panel Lipid Panel [facility] Start: 01-17-2028 Screening for malignant neoplasm of colon [facility] Start: 02-08-2025 Echocardiography Echocardiogram [facility] Start: 12-18-2024 Echocardiography Echocardiogram [facility] Start: 03-22-2024 End: 02-10-2025 NM Heart Wall motion and Ejection fraction NM heart blood pool ejection fraction wall motion (MUGA) Imaging Routine Cardiomyopathy, ischemic Expected: 03/22/2024, Expires: 02/10/2025 [facility] Work Phone: Comment on above: Expected: 03/22/2024, Expires: Start: 03-18-2024 End: 03-18-2024 Patient encounter procedure 03/18/2024 10:10 AM EDT Office Visit [facility] [address] [place] [address] Mariah Alexandre DO [address] [place], [place] [id number] [facility] Start: 03-08-2024 End: 03-08-2024 Patient encounter procedure [facility] Start: 02-11-2024 End: 02-10-2025 Alanine aminotransferase [Enzymatic activity/volume] in Serum or Plasma by With P-5'-P Alanine Aminotransferase Lab Routine Mixed hyperlipidemia Expected: 02/11/2024 (Approximate), Expires: 02/10/2025 [facility] Work Phone: Comment on above: Expected: 02/11/2024 (Approximate), Expi res: 02/10/2025 Start: 02-11-2024 End: 02-10-2025 Aspartate aminotransferase [Enzymatic activity/volume] in Serum or Plasma by With P-5'-P Aspartate Aminotransferase Lab Routine Mixed hyperlipidemia Expected: 02/11/2024 (Approximate), Expires: 02/10/2025 [facility] Work Phone: Comment on above: Expected: 02/11/2024 (Approximate), Expi res: 02/10/2025 Start: 02-11-2024 End: 02-10-2025 Basic metabolic 2000 panel - Serum or Plasma Basic Metabolic Panel Lab Routine Cardiomyopathy, ischemic Expected: 02/11/2024 (Approximate), Expires: 02/10/2025 [facility] Work Phone: Comment on above: Expected: 02/11/2024 (Approximate), Expi res: 02/10/2025 Start: 02-11-2024 End: 02-10-2025 Lipid 1996 panel - Serum or Plasma Lipid Panel Lab Routine ASHD (arteriosclerotic heart disease) Mixed hyperlipidemia Expected: 02/11/2024 (Approximate), Expires: 02/10/2025 [facility] Service Area Work Phone: Comment on above: Expected: 02/11/2024 (Approximate), Expi res: 02/10/2025 Start: 02-11-2024 End: 02-10-2025 XR Chest 2 Views XR chest 2 views Imaging Routine Cardiomyopathy, ischemic Pericardial effusion (HHS-HCC) Expected: 02/11/2024 (Approximate), Expires: 02/10/2025 [facility] Work Phone: Comment on above: Expected: 02/11/2024 (Approximate), Expi res: 02/10/2025 Start: 02-11-2024 End: 02-11-2024 Patient encounter procedure 02/11/2024 10:00 AM EDT Office Visit [facility] [address] [place] [address] Aleksandr Mccormack, FIELD EXAMINER-FIELD INSTRUCTOR [address] [place] [address] [facility] Start: 02-09-2024 End: 02-09-2024 Patient encounter procedure 02/09/2024 9:45 AM EDT Appointment [facility] [address] [place] [address] [facility] Start: 02-05-2024 End: 12-24-2025 Heart Transthoracic Transthoracic Echo Limited Echocardiography Routine ASHD (arteriosclerotic heart disease) ST elevation myocardial infarction (STEMI), unspecified artery (Multi) History of PTCA Shortness of breath Cardiomyopathy, ischemic Congestive heart failure, unspecified HF chronicity, unspecified heart failure type (Multi) Pericardial effusion (HHS-HCC) Expected: 02/05/2024 (Approximate), Expires: 12/24/2025 [facility] Service Area Work Phone: Comment on above: Expected: 02/05/2024 (Approximate), Expi res: 12/24/2025 Start: 12-23-2023 [facility] Start: 12-22-2023 [facility] Start: 12-18-2023 Hospital admission [facility] Start: 12-18-2023 Referral to cardiac rehabilitation program [facility] Start: 12-18-2023 [facility] Start: 12-18-2023 [facility] Start: 10-10-2023 COVID-19 Vaccine ( season) COVID-19 Vaccine ( season) [facility] Start: 2022 Abdominal aortic aneurysm screening Abdominal Aortic Aneurysm (AAA) Screening [facility] Start: 2017 RSV patients and/or patients aged 60+ years (1 - 1-dose 60+ series) RSV patients and/or patients aged 60+ years (1 - 1-dose 60+ series) [facility] Start: 2007 Zoster Vaccines (1 of 2) Zoster Vaccines (1 of 2) [facility] Start: 1979 DTaP/Tdap/Td Vaccines (1 - Tdap) DTaP/Tdap/Td Vaccines (1 - Tdap) [facility] Start: 1975 Diabetes mellitus screening Diabetes Screening [facility] Start: 1975 Hepatitis C screening Hepatitis C Screening [facility] Start: 1963 Pneumococcal Vaccine: 65+ Years (1 of 2 - PCV) Pneumococcal Vaccine: 65+ Years (1 of 2 - PCV) [facility] Start: 1957 Creatinine measurement Creatinine Level [facility] Start: 1957 Potassium measurement Potassium Level [facility] Start: 1957 Screening for malignant neoplasm of colon [facility] Start: 1957 Yearly Adult Physical Yearly Adult Physical [facility] Patient Education Heart Healthy Diet Coronary Angioplasty (DC) Heart Attack (DC) Coronary Stenting (DC) Angina (DC) Chest Pain (DC) Drug Eluting Stents [facility] Work Phone: Patient referral [facility] Work Phone: End: 02-09-2024 [facility] Service Area Work Phone: Comment on above: Once for 1 Occurrences starting 02/09/20 until 02/09/2024 Payers Date Payer Category Payer Self-pay 2014 Private Health Insurance [employer] [id number] 2014-Present P [address] [id number] [place] [address] [id number] 2014 Unknown [id number] 1959 Unknown [id number] 1957 Unknown [id number] 1957 Unknown [id number] 1957 Unknown [id number] 1957 Unknown [id number] 1957 Unknown [id number] 1957 Unknown [id number] 1957 Unknown [id number] 1957 Unknown [id number] 1957 Unknown [id number] Unknown [id number] Social History Date Type Detail Facility Start: 12-18-2023 End: 12-25-2023 Tobacco smoking status NHIS Ex-smoker (finding) [facility] Start: 12-25-2023 End: 02-11-2024 History of tobacco use [facility] Work Phone: Start: 1955 Sex Assigned At Male F [facility] History of tobacco use Current smoker [facility] Work Phone: History of tobacco use Cigarette Smoker [facility] Work Phone: Start: 12-25-2023 Tobacco use and exposure Former smokeless tobacco user [facility] Work Phone: History of tobacco use Chews Tobacco [facility] Work Phone: Start: 12-25-2023 Alcoholic beverage intake Ex-drinker (finding) [facility] Work Phone: Start: 12-25-2023 End: 02-11-2024 History of Social function [facility] Work Phone: Start: 1955 Sex assigned at Not on file [facility] Work Phone: Start: 12-15-2023 End: 02-11-2024 Exposure to SARS-CoV-2 (event) Not sure [facility] Start: 02-11-2024 Alcoholic beverage intake Current drinker of alcohol (finding) [facility] Work Phone: Medical Equipment Procedure Code Equipment Code Equipment Origin al Text Equipment Identifier Dates CL STENT ISAC FRONTIER 2.75 X 15 FDA Start: 12-18-2023 CL STENT ISAC FRONTIER 3.0 X 18 FDA Start: 12-18-2023 CL STENT ISAC FRONTIER 3.5 X 18 FDA Start: 12-19-2023 CL STENT ISAC FRONTIER 3.5 X 30 FDA Start: 12-19-2023 Drug-eluting coronary artery stent, [id number]-[id number] lymer-coated ()[id number] FDA Start: 12-19-2023 Femoral artery closure plug/patch, synthetic polymer ()[id number] FDA Start: 12-19-2023 Goals Date Patient Goal Desired Activity /State Functional Status Date Assessment Result Facility 12-22-2023 Functional status Patient at Baseline [facility] Work Phone: Mental Status Date Assessment Result Facility 12-22-2023 Cognitive function Cognitive Sta tus Patient at Baseline [facility] Work Phone: Clinical Notes 12-18-2023 to 02-11-2024 Assessment & Plan Note - Aleksandr Mccormack APRN-FIELD INSTRUCTOR - 02/11/2024 4:44 PM EDTAssessment & Plan Note - ANOOP Dupree - 02/11/2024 4:44 PM EDTPatient InstructionsPatient Instructions Note Date & Type Note Facility 02-11-2024 Evaluation + Plan note Associated Problem(s): Pleural effusion January 2024 echocardiogram with incidental finding of a moderate left pleural effusion He denies any type of shortness of breath, no dyspnea on exertion, no orthopnea no PND. [facility] Work Phone: 02-11-2024 Evaluation + Plan note Associated Problem(s): BMI 28.0-28.9,adult His weight is down approximately 26 pounds since discharge. He reports that he simply stopped eating because he had no appetite and nothing would taste good. He denies any history of diabetes Reports compliance with preventative cancer screening Remote smoker Follows weight regularly at home and reports his appetite is getting better and he is slowly starting to gain weight. Discussed red flag of unintentional weight gain, they have been cautioned to notify their PCP if continues. [facility] Work Phone: 02-11-2024 Miscellaneous Notes Associated Problem(s): Pleural effusion January 2024 echocardiogram with incidental finding of a moderate left pleural effusion He denies any type of shortness of breath, no dyspnea on exertion, no orthopnea no PND. Associated Problem(s): BMI 28.0-28.9,adult His weight is down approximately 26 pounds since discharge. He reports that he simply stopped eating because he had no appetite and nothing would taste good. He denies any history of diabetes Reports compliance with preventative cancer screening Remote smoker Follows weight regularly at home and reports his appetite is getting better and he is slowly starting to gain weight. Discussed red flag of unintentional weight gain, they have been cautioned to notify their PCP if continues. Associated Problem(s): Mixed hyperlipidemia Tolerating addition of high intensity statin Associated Problem(s): Pericardial effusion (HHS-HCC) I believe at time of hospitalization he had a pericardial effusion and was treated with colchicine -repeat TTE January 2024 no evidence of pericardial effusion but it does show a moderate left pleural effusion. Associated Problem(s): Cardiomyopathy, ischemic DICM HFrEF 30% January 2024 TTE ( December 18, 2023 TTE 30-35%) FC II Stage C GDMT Coreg: November 2023 discharge Spironolactone: November 2023 discharge Jardiance: to pharmacy today NARENDRA/ARB: Hindered due to hypotension but will attempt to add low-dose Cozaar today. Right bundle branch block with QRS 154 Associated Problem(s): ASHD (arteriosclerotic heart disease) December 17, [address] Alexandre Proximal LAD PCI/[place] 3 x 18 and 2.75 x 15 mm Ostial Diag1 & Diag2 85-90% Had staged procedure: Mid RCA PCI/[place] 3.5 x 30 mm Provisional PTCA PLV There is also staged procedure to the circumflex proximal and mid but details are not available LVEF 30 to 35% with akinetic anterior, anterior septal and apical uribe documented in this encounter [facility] Work Phone: 02-11-2024 Evaluation + Plan note Associated Problem(s): Mixed hyperlipidemia Tolerating addition of high intensity statin [facility] Work Phone: 02-11-2024 Evaluation + Plan note Associated Problem(s): Pericardial effusion (HHS-HCC) I believe at time of hospitalization he had a pericardial effusion and was treated with colchicine -repeat TTE January 2024 no evidence of pericardial effusion but it does show a moderate left pleural effusion. T [facility] Work Phone: 02-11-2024 Evaluation + Plan note Associated Problem(s): Cardiomyopathy, ischemic DICM HFrEF 30% January 2024 TTE ( December 18, 2023 TTE 30-35%) FC II Stage C GDMT Coreg: November 2023 discharge Spironolactone: November 2023 discharge Jardiance: to pharmacy today NARENDRA/ARB: Hindered due to hypotension but will attempt to add low-dose Cozaar today. Right bundle branch block with QRS 154 [facility] Work Phone: 02-11-2024 Evaluation + Plan note Associated Problem(s): ASHD (arteriosclerotic heart disease) December 17, [address] Alexandre Proximal LAD PCI/Isac 3 x 18 and 2.75 x 15 mm Ostial Diag1 & Diag2 85-90% Had staged procedure: Mid RCA PCI/Isac 3.5 x 30 mm Provisional PTCA PLV There is also staged procedure to the circumflex proximal and mid but details are not available LVEF 30 to 35% with akinetic anterior, anterior septal and apical uribe [facility] Work Phone: 02-11-2024 History of Present illness Narrative Chief Complaint I think I am doing really good Reason for Visit Patient presents to the office today for outpatient follow-up for testing follow-up. Last evaluated in clinic by Dr. Alexandre December 2023. Patient STEMI was December 18, 2023 and EF was 30-35%. Due to hypotension unable to initiate optimal guideline directed medical therapy, Dr. Alexandre repeated echocardiogram early in January 2024 to assist with treatment. LVEF continues to be right about 30%, LV is mildly dilated with mid/doer anterior septal, apex, distal inferior and anterior lateral dyskinetic uribe. Reviewed in detail with patient, will be more aggressive with initiation of guideline directed medical treatment. Presents today ambulatory with steady gait. Accompanied by spouse Patient denies any hospitalizations or significant changes to interval medical history since last office follow-up. History of Present Illness Patient is a very pleasant 69-year-old gentleman who presents to the office today reportedly doing good . He started cardiac rehab, has returned to work. He denies any dyspnea on exertion, no orthopnea or PND. No edema. No palpitations no history of syncope. He reports his angina symptom was a sudden onset of shoulder pressure, denies any recurrence. Reports that prior complaints of shortness of breath have completely abated with transition off of Brilinta. Has a history of essential tremors, does see neurology on a regular basis. Discussed the 4 pillars of guideline directed medical therapy. Will add low-dose Cozaar at bedtime, add Jardiance. Repeat MUGA scan at 90 days post PCI. Patient reports that overall has no complaint(s) of chest pain, chest pressure/discomfort, claudication, dyspnea, exertional chest pressure/discomfort, fatigue, irregular heart beat, orthopnea, and syncope Daily activity: Cardiac rehab Reports improvement in exercise capacity or functional tolerance since last office visit. The importance of secondary prevention reviewed: HTN: Optimal HLD: Is due for labs DM: Denies Smoker: Denies BMI: Reviewed the merits of healthy lifestyle choices on overall cardiovascular health. Will repeat chest x-ray due to left pleural effusion noted on echo, will add diuretic if needed. Review of Systems Cardiovascular: Negative for chest pain, dyspnea on exertion, irregular heartbeat, leg swelling, near-syncope, orthopnea, palpitations, paroxysmal nocturnal dyspnea and syncope. Visit Vitals BP 110/80 (BP Location: Left arm, Patient Position: Sitting) Pulse 68 Ht 1.778 m (5' 10 ) Wt 91.2 kg (201 lb) BMI 28.84 kg/m Smoking Status Former BSA 2.12 m Physical Exam Vitals and nursing note reviewed. Constitutional: Appearance: Normal appearance. Cardiovascular: Rate and Rhythm: Normal rate and regular rhythm. Heart sounds: Normal heart sounds. Pulmonary: Effort: Pulmonary effort is normal. Breath sounds: Examination of the left-lower field reveals decreased breath sounds. Decreased breath sounds present. Musculoskeletal: Cervical back: Full passive range of motion without pain. Right lower leg: No edema. Left lower leg: No edema. Skin: General: Skin is cool. Neurological: Mental Status: He is alert and oriented to person, place, and time. Psychiatric: Attention and Perception: Attention normal. Mood and Affect: Mood normal. Behavior: Behavior is cooperative. Allergies Allergen Reactions Brilinta [Ticagrelor] Shortness of breath Current Outpatient Medications Medication Instructions albuterol 90 mcg/actuation inhaler INHALE 2 PUFFS EVERY 4-6 HOURS Inhaled as needed for 90 days aspirin 81 mg, oral, Daily carvedilol (COREG) 3.125 mg, oral, 2 times daily (morning and late afternoon) clopidogrel (PLAVIX) 75 mg, oral, Daily empagliflozin (JARDIANCE) 10 mg, oral, Daily losartan (COZAAR) 25 mg, oral, Daily nitroglycerin (NITROSTAT) 0.4 mg, sublingual rosuvastatin (CRESTOR) 5 mg, oral, Every other day spironolactone (ALDACTONE) 12.5 mg, oral, 2 times daily thiamine (VITAMIN B-1) 100 mg, oral, Daily Assessment: ASHD (arteriosclerotic heart disease) December 17, [address] Alexandre Proximal LAD PCI/Isac 3 x 18 and 2.75 x 15 mm Ostial Diag1 & Diag2 85-90% Had staged procedure: Mid RCA PCI/Isac 3.5 x 30 mm Provisional PTCA PLV There is also staged procedure to the circumflex proximal and mid but details are not available LVEF 30 to 35% with akinetic anterior, anterior septal and apical uribe Cardiomyopathy, ischemic DICM HFrEF 30% January 2024 TTE ( December 18, 2023 TTE 30-35%) FC II Stage C GDMT Coreg: November 2023 discharge Spironolactone: November 2023 discharge Jardiance: to pharmacy today NARENDRA/ARB: Hindered due to hypotension but will attempt to add low-dose Cozaar today. Right bundle branch block with QRS 154 Pericardial effusion ([facility]) I believe at time of hospitalization he had a pericardial effusion and was treated with colchicine -repeat TTE January 2024 no evidence of pericardial effusion but it does show a moderate left pleural effusion. Mixed hyperlipidemia Tolerating addition of high intensity statin BMI 28.0-28.9,adult His weight is down approximately 26 pounds since discharge. He reports that he simply stopped eating because he had no appetite and nothing would taste good. He denies any history of diabetes Reports compliance with preventative cancer screening Remote smoker Follows weight regularly at home and reports his appetite is getting better and he is slowly starting to gain weight. Discussed red flag of unintentional weight gain, they have been cautioned to notify their PCP if continues. Pleural effusion January 2024 echocardiogram with incidental finding of a moderate left pleural effusion He denies any type of shortness of breath, no dyspnea on exertion, no orthopnea no PND. Plan: Through informed decision making process incorporating patients unique circumstances, the following treatment plan will be initiated: 1. Prescription drug management of cardiovascular medication for efficacy, adherence to treatment, side effect assessment and polypharmacy. Current treatment clinically warranted and to continue with following modifications: - Cozaar 25mg at bedtime or 2 hours after morning dose of coreg - Jardiance 10mg daily 2. CXR pa/lat - follow up on pleural effusions noted on echo 3. One week labs (lipids, chem6) 4. MUGA after March 18, 2024 ([facility]) 5. Return for follow-up; in the interim, contact the office if new symptoms arise. Dr. Alexandre after testing 6. If weight loss continues then you need to contact PCP Aleksandr Mccormack MSN, FIELD EXAMINER-FIELD INSTRUCTOR, PMHNP-[facility] Please excuse any errors in grammar or translation related to this dictation. Voice recognition software was utilized to prepare this document. documented in this encounter [facility] Work Phone: 02-11-2024 Instructions ANOOP Dupree - 02/11/2024 10:00 AM EDT Please bring all medicines, vitamins, and herbal supplements with you when you come to the office. Prescriptions will not be filled unless you are compliant with your follow up appointments or have a follow up appointment scheduled as per instruction of your physician. Refills should be requested at the time of your visit. PLAN: Through informed decision making process incorporating patients unique circumstances, the following treatment plan will be initiated: 1. Prescription drug management of cardiovascular medication for efficacy, adherence to treatment, side effect assessment and polypharmacy. Current treatment clinically warranted and to continue with following modifications: - Cozaar 25mg at bedtime or 2 hours after morning dose of coreg - Jardiance 10mg daily 2. CXR pa/lat - follow up on pleural effusions noted on echo 3. One week labs (lipids, chem6) 4. MUGA after March 18, 2024 ([facility]) 5. Return for follow-up; in the interim, contact the office if new symptoms arise. Dr. Alexandre after testing 6. If weight loss continues then you need to contact PCP documented in this encounter [facility] Work Phone: 12-25-2023 History of Present illness Narrative Subjective Augie Goodman is a 68 y.o. male Chief Complaint Follow-up 68-year-old gentleman here for transitional care management office visit following recent anterior ST elevation myocardial infarction with primary revascularization of the proximal/mid LAD with 2 drug-eluting stents, end-stage interventions of the proximal and mid circumflex with 2 drug-eluting stents and the RCA with 1 drug-eluting stent. LV function was severe with anteroapical, inferoapical and septal akinesis and ejection fraction of 30%. Current complaints are orthopnea and difficulty sleeping at night potentially related to Brilinta side effect. He as he sits here today he has no dyspnea. There is no prior history of myocardial infarction, no history of diabetes or tobacco use. He has a strong family history of coronary disease Notably post CT immediately in the hospital he had a 3 component friction rub with small pericardial effusion consistent with post CT pericarditis. On today's exam 3 component rub is completely gone. He has 5 more days of colchicine. Blood pressures continue to be soft as they were in the hospital, he is not on afterload reduction therapies as of yet as he was intolerant in the hospital and likely would be intolerant at the present time given his current blood pressure readings. Recommendations: Discontinue Brilinta initiate clopidogrel with a loading dose, obtain another limited echocardiogram in 6 weeks to reassess LV function, pericardial effusion and to survey for mural thrombus treat accordingly and if necessary referral for AICD; refer to cardiac rehab in [place]. Follow-up with nurse practitioner in 6 weeks after echo to see if Medication titration is possible. I will see him again within the next 3 months. Review of Systems Constitutional: Positive for malaise/fatigue. Respiratory: Positive for shortness of breath. All other systems reviewed and are negative. Vitals: 12/25/23 1338 BP: 108/78 BP Location: Right arm Patient Position: Sitting Pulse: 64 Weight: 103 kg (227 lb) Height: 1.778 m (5' 10 ) Objective Physical Exam Constitutional: Appearance: Normal appearance. HENT: Nose: Nose normal. Neck: Vascular: No carotid bruit. Cardiovascular: Rate and Rhythm: Normal rate. Pulses: Normal pulses. Heart sounds: Normal heart sounds. Pulmonary: Effort: Pulmonary effort is normal. Abdominal: General: Bowel sounds are normal. Palpations: Abdomen is soft. Musculoskeletal: General: Normal range of motion. Cervical back: Normal range of motion. Right lower leg: No edema. Left lower leg: No edema. Skin: General: Skin is warm and dry. Neurological: General: No focal deficit present. Mental Status: He is alert. Psychiatric: Mood and Affect: Mood normal. Behavior: Behavior normal. Thought Content: Thought content normal. Judgment: Judgment normal. Allergies Brilinta [ticagrelor] Current Medications Current Outpatient Medications: aspirin 81 mg EC tablet, Take 1 tablet (81 mg) by mouth once daily., Disp: , Rfl: atorvastatin (Lipitor) 80 mg tablet, Take 1 tablet (80 mg) by mouth once daily., Disp: , Rfl: carvedilol (Coreg) 3.125 mg tablet, Take 1 tablet (3.125 mg) by mouth 2 times a day with meals., Disp: , Rfl: colchicine 0.6 mg tablet, Take 1 tablet (0.6 mg) by mouth once daily., Disp: , Rfl: nitroglycerin (Nitrostat) 0.4 mg SL tablet, Place 1 tablet (0.4 mg) under the tongue., Disp: , Rfl: spironolactone (Aldactone) 25 mg tablet, Take 0.5 tablets (12.5 mg) by mouth twice a day., Disp: , Rfl: thiamine 100 mg tablet, Take 1 tablet (100 mg) by mouth once daily., Disp: , Rfl: albuterol 90 mcg/actuation inhaler, INHALE 2 PUFFS EVERY 4-6 HOURS Inhaled as needed for 90 days, Disp: , Rfl: Assessment/Plan 1. ASHD (arteriosclerotic heart disease) 2. ST elevation myocardial infarction (STEMI), unspecified artery (Multi) 3. History of PTCA 4. Shortness of breath 5. Cardiomyopathy, ischemic 6. Congestive heart failure, unspecified HF chronicity, unspecified heart failure type (Multi) 7. BMI 32.0-32.9,adult 8. Former smoker 9. Pericardial effusion ([facility]) Scribe Attestation By signing my name below, I, Cleopatra Hendrix LPN attest that this documentation has been prepared under the direction and in the presence of Mariah Alexandre DO. Provider Attestation - Scribe documentation All medical record entries made by the Scribe were at my direction and personally dictated by me. I have reviewed the chart and agree that the record accurately reflects my personal performance of the history, physical exam, discussion and plan. documented in this encounter [facility] Work Phone: 12-25-2023 Instructions Hiral Conklin LPN - 12/25/2023 1:30 PM EDT Please bring all medicines, vitamins, and herbal supplements with you when you come to the office. Prescriptions will not be filled unless you are compliant with your follow up appointments or have a follow up appointment scheduled as per instruction of your physician. Refills should be requested at the time of your visit. BMI was above normal measurement. Current weight: 103 kg (227 lb) Weight change since last visit (-) denotes wt loss 227 lbs Weight loss needed to achieve BMI 25: 53.1 Lbs Weight loss needed to achieve BMI 30: 18.4 Lbs Provided instructions on dietary changes Provided instructions on exercise. documented in this encounter [facility] Work Phone: 12-22-2023 Discharge summary Note Date/Time December 22, 2023 12:45pm [facility] [address] [place] [address] Discharge Summary Signed Patient: Augie Goodman MR#: [id number] : 1955 Acct:[id number] Age/Sex: 68 / M Adm Date: 4 Loc: Room: [address] [place] [address]: Souleymane Alexandre DO Copies to: MD Souleymane Aguilar, DO~ Providers Date of Discharge: 12/22/23 Discharging Provider: Souleymane Alexandre Primary Care Provider: Favian Edge Consults: 12/18/23 10:28 Consult to Pulmonology Routine Comment: Consulting Provider: SOPHIA Parry Pulmon, [facility] Reason For Exam: Critical Care Management Has Provider Been Notified: Yes Date of Notification: 12/18/23 Time of Notification: 09:00 Extended Comment: Large Ant-Lat STEMI; severe LV Consult to Cardiac Rehabilitation Routine Comment: Physician Instructions: Reason for Consult: Patient Education Discharge Diagnosis (1) ST elevation myocardial infarction (STEMI) of anterolateral wall: (2) ASHD (arteriosclerotic heart disease): (3) Ischemic cardiomyopathy: (4) Stented coronary artery: (5) Dyslipidemia: (6) Obesity: Final Diagnosis Final Discharge Diagnosis: Anterior STEMI ASHD Ischemic cardiomyopathy Summary Hospital Course Hospital course: 68-year-old gentleman admitted December 17 with high risk anterolateral STEMI. He been feeling poorly for several days, underwent rapid revascularization of the occluded proximal/mid LAD with an initial troponin level of 235,000 indicating that he had been sitting on his myocardial infarction for several days. He underwent staged interventions of the proximal and mid circumflex and mid RCA on18 December without complications. Left ventricular function is severe with complete anteroapical and inferoapical akinesis and ejection fraction of 30%. He had no complications of arrhythmias or heart failure. He did develop mild pericardial effusion as well as clinically a 3 component friction rub on exam and therefore we initiated colchicine. His blood pressures were soft and losartan and carvedilol and spironolactone were briefly held. Will be discharged on low-dose carvedilol, spironolactone, colchicine, aspirin, Brilinta, high intensity statin to follow-up for TCM visit within the next week. We counseled him on weight limit restrictions, will then allow him to go back to work at this point in time, repeat LV functional assessment in the near future for candidacy for AICD Condition Condition at Discharge: Stable Status at Discharge Functional status at discharge: independent ambulation Overall status at discharge: patient is back to baseline Time Spent with Patient Time spent providing/coordinating discharge services (# min): 30 Surgeries and Procedures Operation Date: 12/18/23 08:00 Actual Procedures p CL PCI AMI 1st Vessel LAD IVONNE - W Pavel Alexandre DO p CL LHC & COR Angio - W Pavel Alexandre DO p CL Coronary Thrombolysis IV - W Pavel Alexandre DO p CL Iliac/Fem w/LHC - W Pavel Alexandre DO Operation Date: 12/19/23 12:10 Actual Procedures p CL Stent 1st Vessel RCA IVONNE - W Pavel Alexandre DO s CL PTCA Ea Add RCA - W Pavel Alexandre DO p CL Stent 1st Vessel CX IVONNE - W Pavel Alexandre, DO p CL Closure Device Placement 0 - W Pavel Alexandre DO Complications Complications: None Discharge Plan Discharge Plan Patient Disposition: Home Diet: Low-Fat, Low-Sodium and Low-Cholesterol Additional Instructions: DISCHARGE INSTRUCTIONS FOR ANGIOPLASTY/CORONARY/PERIPHERAL/STENT IMPLANT FOR ADULT ANTICOAGULATION -Since the greatest risk of a blood clot forming with the stent occurs in the first 2-3 weeks after implantation, you will need to take anticoagulants for at least 12-18 months. ANTICOAGULATION MEDICATION Aspirin 81mg once a day, Ticagrelor (Brilinta) 90mg twice a day STATIN MEDICATION Atorvastatin (Lipitor) 80 mg Drug-Eluting Stent (IVONNE) DO NOT discontinue Brilinta/Aspirin during the first few months regardless of what you are advised by your family doctor or pharmacist, without first calling the post doctoral researcher who implanted the stent. If you require pain relief during this time, please take only ACETAMINOPHEN (TYLENOL)- NO additional aspirin or ibuprofen. DISCHARGE ACTIVITIES ARE FOLLOWS: First week after discharge: -Take it easy at home, no strenuous activity. -Do not lift or pull objects over 10-15 pounds, including children, and groceries for four weeks. If puncture site is at wrist do NOT lift more than three pounds for three days. - May walk up stairs. -May shower. -No excessive scrubbing of the affected site (groin). -May ride in car. -May resume sexual intercourse after 1-2 weeks. -No MRI for 12 days. -May drive in 4-7 days. -If puncture site is at the wrist do not manipulate the wrist for 24 hours, and no soaking wrist for three days. Second Week: -May take a bath -May start walking 3 times a week for 15-20 minutes at a leisurely pace. You should be able to carry on a conversation comfortably without feeling winded. -No strenuous activity as in jogging, running, weight lifting, stair steppers, etc. until the post doctoral researcher approves these activities. Check with the post doctoral researcher on your first follow-up visit. CALL YOUR PACKING MACHINE CAN FEEDER: -If bleeding should occur from the catheter insertion site- apply pressure to the site then immediately call us. -Report any fever, redness, drainage, increased swelling, or firmness at the catheter insertion site. Some bruising or slight swelling may be present at thetime of discharge. -Should arm or leg become cold, numb, white, or blue, contact the post doctoral researcher immediately. -IF you should experience episodes of angina, e.g. chest discomfort, heaviness, tightness, pressure burning with or without radiation to the neck, jaw, arms or back- use 1 Nitrostat tablet under your tongue every 5-10 minutes and up to three tablets. IF NO RELIEF, CALL 911 or GO TO THE NEAREST EMERGENCY ROOM. -Please notify our office if you have recurrent angina. The attending post doctoral researcher or a nurse clinician should provide you with specificinstructions regarding activity, diet, medications, and further follow up for you. Follow the medication instructions provided on your discharge. If the dosages and instructions on this sheet differ from the dosage and instructions on the bottle, follow the instructions on the bottle. [facility] is not responsible for incorrect prescription information provided by the patient during their visit. Do not stop your medications without consulting your health care provider. Please take the list with you to your next doctor's appointment. Instructions: Heart Healthy Diet, Coronary Angioplasty (DC), Heart Attack (DC),Coronary Stenting (DC), Angina (DC), Chest Pain (DC), Drug Eluting Stents Prescriptions: New Brilinta 90 mg Tablet 90 mg PO BID 90 Days Qty: 180 3RF atorvastatin 80 mg Tablet 80 mg PO QPM 30 Days Qty: 30 12RF aspirin 81 mg Tablet,Delayed Release (Dr/Ec) 81 mg PO DAILY 90 Days Qty: 90 3RF nitroglycerin 0.4 mg Tablet, Sublingual 0.4 mg sublingual Q5MIN.X3 PRN (Reason: Chest Pain) 30 Days Qty: 25 3RF spironolactone 25 mg Tablet 12.5 mg PO DAILY 30 Days Qty: 15 12RF carvedilol 3.125 mg Tablet 3.125 mg PO BID.WITH.MEALS 30 Days Qty: 60 12RF colchicine 0.6 mg tablet 0.6 mg PO DAILY 10 Days Qty: 10 0RF Continued thiamine HCl (vitamin B1) 100 mg tablet 100 mg PO DAILY Follow Up: Souleymane Alexandre DO [Active Staff - D.O.] - 12/25/23 1:30 pm Exam Physical Exam Vital Signs: Temp Pulse Resp BP Pulse Ox O2 Del Method O2 Flow Rate 98.5 F 67 20 95/62 L 98 Room Air 2 12/22/23 08:00 12/22/23 08:00 12/22/23 08:00 12/22/23 08:00 12/22/23 08:00 12/22/23 08:00 12/19/23 18:00 Const General: cooperative, well developed and anxious Nutritional Appearance: average body habitus Orientation: alert, awake and oriented x3 HEENT Head: normal to inspection Neck Neck: normal visual inspection Chest Chest palpation & inspection: normal inspection of the chest Resp Effort & Inspection: normal respiratory effort and tachypneic Auscultation: clear to auscultation bilaterally Cardio Palpation: normal PMI Rate: regular rate Rhythm: regular rhythm Heart Sounds: S1 normal and S2 normal Pulses: radial pulses present and femoral pulses present GI Palpation: soft Skin General: no rashes or lesions noted Neuro General: patient alert, patient awake and patient oriented x3 Cognition: normal cognition Speech: speech normal Extrem General: no clubbing, cyanosis or edema Diagnostic Studies Completed and Pending Studies Pending studies at discharge: 12/23/23 05:00 Basic Metabolic Panel [CHEM] IN AM Complete Blood Count Auto Diff IN AM Labs on day of discharge: 12/22/23 04:22: Corrected WBC 5.3, Uncorrected WBC Count 5.3, RBC 3.11 L, Hgb 10.1 L, Hct 28.8 L, MCV 92.6, MCH 32.6, MCHC 35.1, RDW 13.4, Plt Count 197, MPV 8.7, Neut % (Auto) 57.7, Lymph % (Auto) 17.6, [place] % (Auto) 23.1, Eos % (Auto) 1.3, Baso % (Auto) 0.3, Nucleat RBC Rel Count 0.2, Neut # (Auto) 3.0, Lymph # (Auto) 0.9 L, [place] # (Auto) 1.2 H, Eos # (Auto) 0.1, Baso # (Auto) 0.0, PHA Creatinine Clear 75.79, Sodium 129 L, Potassium 3.7, Chloride 92 L, Carbon Dioxide 25.1, Anion Gap 15.6 H, BUN 33 H, Creatinine 1.15, Est GFR (CKD-EPI) > 60.0, Glucose 109 H, Calcium 8.2 L Documented By: Souleymane Alexandre DO 12/22/23 1240 Signed By: <Electronically signed by Souleymane Alexandre DO> 12/22/23 1246 [facility] Work Phone: 1(664) 971-617704-28-2024 Progress note Author Amparo Montejo [facility] December 21, 2023 11:47am Note Date/Time December 21, 2023 11: 46am [facility] [address] [place] [address] Cardiology Progress Note Signed Patient: Augie Goodman MR#: [id number] : 1955 Acct:[id number] Age/Sex: 68 / M Adm Date: 4 Loc: Room: [address] [place] [address] Type: ADM IN Attending Dr: Souleymane Alexandre DO Copies to: ~ Date of Service: 12/21/2023 Subjective Principal diagnosis: Inferior/anteroseptal ST elevation myocardial infarction Interval history: The patient is resting comfortably at the bedside in the chair, he is in sinus rhythm, his morning vasoactive medications were held due to hypotension. His examination reveals normal heart sounds and no pulmonary congestion and no lowerextremity edema. Will put some parameters for when to give these medications with a cutoff of 90 mmHg systolic blood pressure to be administered. Discussed with the patient his case and the need for patient's and management of his severe case of ischemic cardiomyopathy and severe three-vessel coronary artery disease. He can be transferred to telemetry today. Will discontinue colchicine. Exam Physical Exam Vital Signs: Temp Pulse Resp BP Pulse Ox O2 Del Method O2 Flow Rate 98.2 F 63 20 96/67 L 96 Room Air 2 12/21/23 08:00 12/21/23 10:00 12/21/23 10:00 12/21/23 10:00 12/21/23 10:12/21/23 10:00 12/19/23 18:00 Const General: cooperative, comfortable and no acute distress Nutritional Appearance: obese Orientation: alert, awake and oriented x3 HEENT Head: normal to inspection, normocephalic and atraumatic Ears: hearing grossly normal bilaterally Nose: external nose normal Face and sinus: normal facial exam Eyes General: appearance normal, both eyes and all related structures Conjunctivae: conjunctivae normal Pupils: PERRL Neck Neck: normal visual inspection, trachea midline and supple Neck mass: No Thyroid: thyroid normal Carotids: normal carotid upstroke Resp Effort & Inspection: normal respiratory effort Auscultation: clear to auscultation bilaterally Cardio Jugular venous pressure: no JVD Palpation: normal PMI Rate: regular rate Rhythm: regular rhythm Heart Sounds: S1 normal and S2 normal GI Inspection: normal to inspection Palpation: soft and no hepatosplenomegaly Auscultation: normal bowel sounds Extrem General: no clubbing, cyanosis or edema Objective Labs 12/21/23 04:08 12/21/23 04:08 Labs: Laboratory Results - last 24 hr 12/21/23 04:08 Corrected WBC 5.7 Uncorrected WBC Count 5.7 RBC 3.36 L Hgb 10.9 L Hct 31.3 L MCV 93.2 MCH 32.3 MCHC 34.7 RDW 13.5 Plt Count 188 MPV 8.7 Neut % (Auto) 65.4 Lymph % (Auto) 15.6 [place] % (Auto) 17.8 Eos % (Auto) 1.0 Baso % (Auto) 0.2 Nucleat RBC Rel Count 0.1 Neut # (Auto) 3.8 Lymph # (Auto) 0.9 L [place] # (Auto) 1.0 H Eos # (Auto) 0.1 Baso # (Auto) 0.0 PHA Creatinine Clear 83.84 Sodium 126 L Potassium 3.6 Chloride 93 L Carbon Dioxide 24.9 Anion Gap 11.7 BUN 32 H Creatinine 1.04 Est GFR (CKD-EPI) > 60.0 Glucose 112 H Calcium 8.6 A&P - Cardiology (1) ST elevation myocardial infarction (STEMI) of anterolateral wall: Assessment/Problem Details: Extensive myocardial infarction involving the entire anteroseptal and apical segment Plan: Patient is status post complete revascularization with PCI Code(s): I21.09 - ST elevation (STEMI) myocardial infarction involving other coronary artery of anterior wall (2) ASHD (arteriosclerotic heart disease): Assessment/Problem Details: Extensive three-vessel coronary disease Plan: Aggressive management of risk factor for CAD and lifestyle modifications Code(s): I25.10 - Atherosclerotic heart disease of [place] coronary artery without angina pectoris (3) Ischemic cardiomyopathy: Assessment/Problem Details: Ejection fraction 35% but compensated with no clinical heart failure Plan: Due to soft blood pressure readings we have to be cautious and I will advance his heart failure therapy. Will take it 1 day at a time. I advised the staff today not to provide heart failure treatment due to his blood pressure Code(s): I25.5 - Ischemic cardiomyopathy (4) Stented coronary artery: Assessment/Problem Details: Status post successful multivessel angioplasty Plan: Dual antiplatelet therapy and aggressive risk factors modifications Code(s): Z95.5 - Presence of coronary angioplasty implant and graft (5) Dyslipidemia: Plan: High intensity statin indefinitely Code(s): E78.5 - Hyperlipidemia, unspecified (6) Obesity: Plan: Lifestyle modifications after he gets discharged and underwent cardiac rehab andhe need to work on being more active and losing weight. Code(s): E66.9 - Obesity, unspecified Plan See above Documented By: Amparo Montejo MD, [facility] 4 1145 Signed By: <Electronically signed by MD JOSE Montejo> 12/21/23 1147 [facility] Work Phone: 1(861) 265-367704-27-2024 Progress note Author Amparo Montejo [facility] December 20, 2023 2:21pm Note Date/Time December 20, 2023 2:2 1pm [facility] [address] [place] [address] Cardiology Progress Note Signed Patient: Augie Goodman MR#: [id number] : 1955 Acct:[id number] Age/Sex: 68 / M Adm Date: 4 Loc: Room: [address] [place] [address] Type: ADM IN Attending Dr: Souleymane Alexandre DO Copies to: ~ Date of Service: 12/20/2023 Subjective Principal diagnosis: Inferior/anteroseptal ST elevation myocardial infarction Interval history: The patient is resting comfortably at the bedside in the chair, he is in sinus rhythm, his morning vasoactive medications were held due to hypotension. His examination reveals normal heart sounds and no pulmonary congestion and no lowerextremity edema. Will put some parameters for when to give these medications with a cutoff of 90 mmHg systolic blood pressure to be administered. Discussed with the patient his case and the need for patient's and management of his severe case of ischemic cardiomyopathy and severe three-vessel coronary artery disease. Exam Physical Exam Vital Signs: Temp Pulse Resp BP Pulse Ox O2 Del Method O2 Flow Rate 98.5 F 64 21 98/65 L 96 Room Air 2 12/20/23 08:00 12/20/23 13:00 12/20/23 13:00 12/20/23 13:00 12/20/23 08:00 12/20/23 13:12/19/23 18:00 Const General: cooperative, comfortable and no acute distress Nutritional Appearance: obese Orientation: alert, awake and oriented x3 HEENT Head: normal to inspection, normocephalic and atraumatic Ears: hearing grossly normal bilaterally Nose: external nose normal Face and sinus: normal facial exam Eyes General: appearance normal, both eyes and all related structures Conjunctivae: conjunctivae normal Pupils: PERRL Neck Neck: normal visual inspection, trachea midline and supple Neck mass: No Thyroid: thyroid normal Carotids: normal carotid upstroke Resp Effort & Inspection: normal respiratory effort Auscultation: clear to auscultation bilaterally Cardio Jugular venous pressure: no JVD Palpation: normal PMI Rate: regular rate Rhythm: regular rhythm Heart Sounds: S1 normal and S2 normal GI Inspection: normal to inspection Palpation: soft and no hepatosplenomegaly Auscultation: normal bowel sounds Extrem General: no clubbing, cyanosis or edema Objective Labs 12/20/23 04:36 12/20/23 04:36 Labs: Laboratory Results - last 24 hr 12/20/23 04:36 Corrected WBC 9.3 Uncorrected WBC Count 9.3 RBC 3.59 L Hgb 11.7 L Hct 33.9 L MCV 94.3 MCH 32.5 MCHC 34.5 RDW 14.0 Plt Count 190 MPV 8.8 Neut % (Auto) 75.7 Lymph % (Auto) 11.8 [place] % (Auto) 12.1 Eos % (Auto) 0.1 Baso % (Auto) 0.3 Nucleat RBC Rel Count 0.0 Neut # (Auto) 7.1 Lymph # (Auto) 1.1 [place] # (Auto) 1.1 H Eos # (Auto) 0.0 Baso # (Auto) 0.0 PHA Creatinine Clear 63.17 Sodium 127 L Potassium 4.0 Chloride 95 L Carbon Dioxide 25.1 Anion Gap 10.9 BUN 33 H Creatinine 1.37 H Est GFR (CKD-EPI) 56.892 Glucose 125 H Calcium 8.5 L Troponin I High Sens 27693.2 H* A&P - Cardiology (1) ST elevation myocardial infarction (STEMI) of anterolateral wall: Assessment/Problem Details: Extensive myocardial infarction involving the entire anteroseptal and apical segment Plan: Patient is status post complete revascularization with PCI Code(s): I21.09 - ST elevation (STEMI) myocardial infarction involving other coronary artery of anterior wall (2) ASHD (arteriosclerotic heart disease): Assessment/Problem Details: Extensive three-vessel coronary disease Plan: Aggressive management of risk factor for CAD and lifestyle modifications Code(s): I25.10 - Atherosclerotic heart disease of [place] coronary artery without angina pectoris (3) Ischemic cardiomyopathy: Assessment/Problem Details: Ejection fraction 35% but compensated with no clinical heart failure Plan: Due to soft blood pressure readings we have to be cautious and I will advance his heart failure therapy. Will take it 1 day at a time. I advised the staff today not to provide heart failure treatment due to his blood pressure Code(s): I25.5 - Ischemic cardiomyopathy (4) Stented coronary artery: Assessment/Problem Details: Status post successful multivessel angioplasty Plan: Dual antiplatelet therapy and aggressive risk factors modifications Code(s): Z95.5 - Presence of coronary angioplasty implant and graft (5) Dyslipidemia: Plan: High intensity statin indefinitely Code(s): E78.5 - Hyperlipidemia, unspecified (6) Obesity: Plan: Lifestyle modifications after he gets discharged and underwent cardiac rehab andhe need to work on being more active and losing weight. Code(s): E66.9 - Obesity, unspecified Plan See above Documented By: Amparo Montejo MD, [facility] 4 1415 Signed By: <Electronically signed by [facility] Amparo Montejo> 12/20/23 1421 [facility] Work Phone: 1(667) 254-825804-26-2024 Progress note Author Souleymane Alexandre [facility] December 19, 2023 12:35pm Note Date/Time December 19, 2023 12: 35pm [facility] [address] [place] [address] Cardiology Progress Note Signed Patient: Augie Goodman MR#: [id number] : 1955 Acct:[id number] Age/Sex: 68 / M Adm Date: 4 Loc: Room: [address] [place] [address] Type: ADM IN Attending Dr: Souleymane Alexandre DO Copies to: ~ Date of Service: 12/19/2023 Subjective Interval history: Mr. Goodman is a 68 year old male admitted in transfer from [place] emergency room this morning with acute anterolateral STEMI. Patient arrived at [facility] 0621 in the morning, initial ECG was done at 0630, confirming acute anterolateral STEMI with underlying right bundle branch configuration. Case discussed with Dr. Shaila Marker, ER attending, upstream ticagrelor and heparinwere initiated and transfer was arranged. Patient arrived at [facility] at 0743; initial device activation at 0803. Clinically patient admitted complaining of chest discomfort for the past severaldays was recently turkey hunting. There is no prior history of myocardial infarction, revascularization, stroke, thromboembolic or bleeding disorder He denies diabetes or tobacco use There is no record of current medications and no known allergies A total of 60 minutes nonprocedural critical care time were devoted to the outside ER staff, Fruit Farmworker staff, nursing staff, patient and family both pre andpost procedurally Interim evaluation 12/19/2023: Patient is doing well, right femoral sheath remains in place, no further chest pain, mildly hypotensive after administrationof losartan. ECGs with persistent ST elevation and Q waves in the anteroseptal leads likely consistent with aneurysmal LV. Troponins have trended down to 56,000 from a peak of 237,000. Echocardiogram reviewed at bedside reveals anteroapical, inferoapical and lateral apical akinesis, with ejection fraction of 30 to 35%. Case discussed with family members and patient; will proceed with PCI's of the circumflex and RCA later this morning (for completion of revascularization), at which point we can transition to more aggressive afterload reduction therapies as allowable. Exam Physical Exam Vital Signs: Temp Pulse Resp BP Pulse Ox O2 Del Method O2 Flow Rate 97.9 F 72 20 86/60 L 93 L Room Air 4 12/19/23 08:00 12/19/23 11:00 12/19/23 11:12/19/23 11:00 12/19/23 11:12/19/23 11:12/19/23 08:00 Const General: cooperative, well developed, in distress and anxious Nutritional Appearance: average body habitus Orientation: alert, awake and oriented x3 HEENT Head: normal to inspection Neck Neck: normal visual inspection Chest Chest palpation & inspection: normal inspection of the chest Resp Effort & Inspection: normal respiratory effort and tachypneic Auscultation: clear to auscultation bilaterally Cardio Palpation: normal PMI Rate: regular rate Rhythm: regular rhythm Heart Sounds: S1 normal and S2 normal Pulses: radial pulses present and femoral pulses present GI Palpation: soft Skin General: no rashes or lesions noted Neuro General: patient alert, patient awake and patient oriented x3 Cognition: normal cognition Speech: speech normal Extrem General: no clubbing, cyanosis or edema Objective Labs 12/19/23 04:20 12/19/23 04:20 Labs: Laboratory Results - last 24 hr 12/18/23 12/18/23 12/19/23 13:20 17:10 04:20 Corrected WBC 10.4 Uncorrected WBC Count 10.4 RBC 3.88 L Hgb 12.6 L Hct 36.1 L MCV 92.9 MCH 32.4 MCHC 34.9 RDW 13.8 Plt Count 176 MPV 8.0 Neut % (Auto) 79.2 Lymph % (Auto) 8.3 Chilton % (Auto) 10.8 Eos % (Auto) 0.2 Baso % (Auto) 1.5 Nucleat RBC Rel Count 0.0 Neut # (Auto) 8.3 H Lymph # (Auto) 0.9 L Chilton # (Auto) 1.1 H Eos # (Auto) 0.0 Baso # (Auto) 0.2 PHA Creatinine Clear 97.39 Sodium 129 L Potassium 3.9 Chloride 96 L Carbon Dioxide 25.9 Anion Gap 11.0 BUN 21 Creatinine 0.90 Est GFR (CKD-EPI) > 60.0 Glucose 142 H Calcium 8.7 Troponin I High Sens 884182.5 H* 13544.0 H* 81100.4 H* Triglycerides 47 Cholesterol 138 L LDL Cholesterol, Calc 71 VLDL Cholesterol 9 HDL Cholesterol 58 Cholesterol/HDL Ratio 2.4 A&P - Cardiology (1) ST elevation myocardial infarction (STEMI) of anterolateral wall: Code(s): I21.09 - ST elevation (STEMI) myocardial infarction involving other coronary artery of anterior wall (2) ASHD (arteriosclerotic heart disease): Code(s): I25.10 - Atherosclerotic heart disease of levelock coronary artery without angina pectoris (3) Ischemic cardiomyopathy: Code(s): I25.5 - Ischemic cardiomyopathy Plan See above Documented By: Souleymane Alexandre DO 12/19/23 1231 Signed By: <Electronically signed by Souleymane Alexandre DO> 12/19/23 1235 [facility] Work Phone: 1(136) 484-245104-26-2024 [facility] Progress note Author Edwin Juares [facility] December 18, 2023 5:21pm Note Date/Time December 18, 2023 5:2 1pm [facility] [address] [place] [id number] Progress Note Signed Patient: Augie Goodman MR#: [id number] : 1955 Acct:[id number] Age/Sex: 68 / M Adm Date: 4 Loc: Room: [address] [place] [address] Type: ADM IN Attending Dr: Souleymane Alexandre DO Copies to: ~ Date of Service: 12/18/2023 Progress Narrative Note PROGRESS NOTE Progress Note: Chart was reviewed and case was discussed with charge nurse. Patient was seen after cardiac catheterization with note of three-vessel coronary disease with PCI to the left anterior descending with plan for further intervention tomorrow. Patient is stable without respiratory complaints on 4 L of oxygen per minute nasal cannula. I have nothing really to offer at this point. We will be available as needed to provide assistance as able. However, we will not formally round on the patient. Documented By: Edwin Juares MD 4 1720 Signed By: <Electronically signed by MD Edwin Juares> 12/18/23 1721 [facility] Work Phone: 1(705) 516-545804-25-2024 History and physical note Author Souleymane Alexandre [facility] December 18, 2023 9:06am Note Date/Time December 18, 2023 9:0 6am [facility] [address] [place] [id number] Cardiology H&P Signed Patient: Augie Goodman MR#: [id number] : 1955 Acct:[id number] Age/Sex: 68 / M Adm Date: 4 Loc: Room: Type: PRE MAC Attending Dr: Souleymane Alexandre DO Copies to: MD Souleymane Aguilar DO~ Date of Service: 12/18/2023 Cardiology HPI History of Present Illness Chief complaint: Anterolateral STEMI HPI: Mr. Goodman is a 68 year old male admitted in transfer from [place] emergency room this morning with acute anterolateral STEMI. Patient arrived at [facility] 0621 in the morning, initial ECG was done at 0630, confirming acute anterolateral STEMI with underlying right bundle branch configuration. Case discussed with Dr. Shaila Bradford, ER attending, upstream ticagrelor and heparinwere initiated and transfer was arranged. Patient arrived at [facility] at 0743; initial device activation at 0803. Clinically patient admitted complaining of chest discomfort for the past severaldays was recently turkey hunting. There is no prior history of myocardial infarction, revascularization, stroke, thromboembolic or bleeding disorder He denies diabetes or tobacco use There is no record of current medications and no known allergies A total of 60 minutes nonprocedural critical care time were devoted to the outside ER staff, Fruit Farm[employer] staff, nursing staff, patient and family both pre andpost procedurally Review of Systems Review of Systems All other systems reviewed & are negative unless noted below or in HPI Constitutional Constitutional: Reports as per HPI Cardiovascular Cardiovascular: Reports as per HPI and Reports chest pain at rest Exam Const General: cooperative, well developed, in distress and anxious Nutritional Appearance: average body habitus Orientation: alert, awake and oriented x3 HEENT Head: normal to inspection Neck Neck: normal visual inspection Chest Chest palpation & inspection: normal inspection of the chest Resp Effort & Inspection: normal respiratory effort and tachypneic Auscultation: clear to auscultation bilaterally Cardio Palpation: normal PMI Rate: regular rate Rhythm: regular rhythm Heart Sounds: S1 normal and S2 normal Pulses: radial pulses present and femoral pulses present GI Palpation: soft Skin General: no rashes or lesions noted Neuro General: patient alert, patient awake and patient oriented x3 Cognition: normal cognition Speech: speech normal Extrem General: no clubbing, cyanosis or edema EKG Interpretations EKG EKG results cardiology: sinus rhythm Blocks, axis, hypertrophy, ST abn AV and intraventricular conduction: right bundle branch block (fixed/intermittent, complete/incomplete) CT, pacemaker, normal Myocardial infarction: anterior CT (acute or recent) A&P - Cardiology (1) ST elevation myocardial infarction (STEMI) of anterolateral wall: Code(s): I21.09 - ST elevation (STEMI) myocardial infarction involving other coronary artery of anterior wall Plan See above Documented By: Souleymane Alexandre DO 12/18/23 0900 Signed By: <Electronically signed by Souleymane Alexandre DO> 12/18/23 0906 [facility] Work Phone: 1(101) 521-172604-25-2024 [facility] CenterEvaluation [facility] * Diagnosis Onset Date Resolution Status ASHD (arteriosclerotic heart disease) acute Dyslipidemia acute Ischemic cardiomyopathy acut e Obesity acute ST elevation myocardial infa rction (STEMI) of anterolateral wall acute Stented coronary artery acut e [facility] Work Phone: Evaluation note* Diagnosis ASHD (arteriosclerotic heart disease) Coronary atherosclerosis of unspecified type of vessel, levelock or graft ST elevation myocardial infarction (STEMI), unspecified artery (Multi) History of PTCA Postsurgical percutaneous transluminal coronary angioplasty status Shortness of breath Cardiomyopathy, ischemic Other specified forms of chronic ischemic heart disease Congestive heart failure, unspecified HF chronicity, unspecified heart failure type (Multi) BMI 32.0-32.9,adult Former smoker Personal history of tobacco use, presenting hazards to [facility] Pericardial effusion ([facility]) Unspecified disease of pericardium documented in this encounter [facility] Work Phone: Evaluation note* Diagnosis ASHD (arteriosclerotic heart disease) Coronary atherosclerosis of unspecified type of vessel, levelock or graft ST elevation myocardial infarction (STEMI), unspecified artery (Multi) History of PTCA Postsurgical percutaneous transluminal coronary angioplasty status Shortness of breath Cardiomyopathy, ischemic Other specified forms of chronic ischemic heart disease Congestive heart failure, unspecified HF chronicity, unspecified heart failure type (Multi) Pericardial effusion ([facility]) Unspecified disease of pericardium documented in this encounter [facility] Work Phone: Evaluation note* Diagnosis Cardiomyopathy, ischemic- Primary Other specified forms of chronic ischemic heart disease ASHD (arteriosclerotic heart disease) Coronary atherosclerosis of unspecified type of vessel, levelock or graft Pericardial effusion ([facility]-HCC) Unspecified disease of pericardium Mixed hyperlipidemia BMI 28.0-28.9,adult Pleural effusion Unspecified pleural effusion documented in this encounter [facility] Work Phone: Reason for referral (narrative)* Consultation (Routine) - Authorized Specialty Diagnoses / Procedures Referred By Contac t Referred To Contact Cardiology Diagnoses ASHD (arteriosclerotic heart disease) Procedures Follow Up In Cardiology Mariha Alexandre DO [facility] 2, [address] [address] Aleksandr Mccormack, FIELD EXAMINER-FIELD INSTRUCTOR [facility], [address] [address] Referral ID Status Reason Start Date Expiration Date V isits Requested Visits Authorized [id number] Authorized 12/25/2023 12/24/2024 1 1 * Consultation (Routine) - Authorized Specialty Diagnoses / Procedures Referred By Rosendo whittaker Referred To Contact Cardiac Rehabilitation Diagnoses ASHD (arteriosclerotic heart disease) ST elevation myocardial infarction (STEMI), unspecified artery (Multi) History of PTCA Shortness of breath Cardiomyopathy, ischemic Congestive heart failure, unspecified HF chronicity, unspecified heart failure type (Multi) Pericardial effusion ([facility]-HCC) Mariah Alexandre DO [facility] [address], [address] [address] Referral ID Status Reason Start Date Expiration Date Visits Requested Visits Authorized [id number] Authorized Specialty Services Required 12/25/2023 12/24/2024 1 1 * CV Imaging (Routine) - Pending Review Specialty Diagnoses / Procedures Referred By Rosendo whittaker Referred To Contact Cardiology Diagnoses ASHD (arteriosclerotic heart disease) ST elevation myocardial infarction (STEMI), unspecified artery (Multi) History of PTCA Shortness of breath Cardiomyopathy, ischemic Congestive heart failure, unspecified HF chronicity, unspecified heart failure type (Multi) Pericardial effusion ([facility]-HCC) Procedures Transthoracic Echo Limited LA ECHO TRANSTHORC R-T 2D W/WO M-MODE REC F-UP/LMTD LA DOP ECHOCARD COLOR FLOW VELOCITY MAPPING LA DOP ECHOCARD PULSE WAVE W/SPECTRAL F-UP/LMTD STD Mariah Alexandre DO [address] [place], [place] [address]dg 2, [place] [address] [place] [address] Referral ID Status Reason Start Date Expiration Date Visits Requested Visits Authorized [id number] Pending Review Perform Procedure 12/25/2023 12/24/2024 1 1 * Consultation (Routine) - Authorized Specialty Diagnoses / Procedures Referred By Contac t Referred To Contact Cardiology Diagnoses ASHD (arteriosclerotic heart disease) Procedures Follow Up In Cardiology BaldomeroMariah pozo, DO [facility], [place] [address] [place] [address] Baldomero Mariah Lenin, DO [facility] [address], [address] [address] Referral ID Status Reason Start Date Expiration Date V isits Requested Visits Authorized [id number] Authorized 12/25/2023 12/24/2024 1 1 [facility] Work Phone: Reason for referral (narrative)* Consultation (Routine) - Authorized Specialty Diagnoses / Procedures Referred By Contac t Referred To Contact Cardiology Diagnoses ASHD (arteriosclerotic heart disease) Procedures Follow Up In Cardiology Aleksandr Mccormack APRN-MARIAK [facility] [address], [address] [address] Mariah Alexandre, DO [facility] [address], [address] [address] Referral ID Status Reason Start Date Expiration Date V isits Requested Visits Authorized [id number] Authorized 02/11/2024 02/10/2025 1 1 * Imaging (Routine) - Pending Review Specialty Diagnoses / Procedures Referred By Contac t Referred To Contact Radiology Diagnoses Cardiomyopathy, ischemic Procedures NM heart blood pool ejection fraction wall motion (MUGA) Aleksandr Mccormack APRN-CNP [facility] 2, [address] [place] [address] Referral ID Status Reason Start Date Expiration Date Visits Requested Visits Authorized [id number] Pending Review Perform Procedure 02/11/2024 02/10/2025 2 2 * Imaging (Routine) - Authorized Specialty Diagnoses / Procedures Referred By Contac t Referred To Contact Radiology Diagnoses Cardiomyopathy, ischemic Pericardial effusion ([facility]HS-HCC) Procedures XR chest 2 views Aleksandr Mccormack APRN-CNP [facility], [address] [place] [address] Referral ID Status Reason Start Date Expiration Date Visits Requested Visits Authorized [id number] Authorized Perform Procedure 02/11/2024 02/10/2025 1 1 [facility] Work Phone: Summary Purpose Family History No Family History Records FoundNo Family History Records FoundNo Family History Records FoundNo Family History Records FoundNo Family History Records FoundNo Family History Records Found Advance Directives No Advanced Directives Records Found Advance Directive Response Recorded Date/ Time Advance Directives No December 17, 024 7:12am Chief Complaint and Reason for Visit Chief Complaint stemi stemi Reason for Visit ASHD (arteriosclerot ic heart disease) Dyslipidemia Ischemic cardiomyopathy Obesity ST elevation myocardial infarction (STEMI) of anterolateral wall Stented coronary artery Reason for Referral Specialty Diagnoses / Procedures Referred By Rosendo t Referred To Contact Cardiology Diagnoses ASHD (arteriosclerotic heart disease) ST elevation myocardial infarction (STEMI), unspecified artery (Multi) History of PTCA Shortness of breath Cardiomyopathy, ischemic Congestive heart failure, unspecified HF chronicity, unspecified heart failure type (Multi) Pericardial effusion (HHS-HCC) Procedures Transthoracic Echo Limited LA ECHO TRANSTHORC R-T 2D W/WO M-MODE REC F-UP/LMTD LA DOP ECHOCARD COLOR FLOW VELOCITY MAPPING LA DOP ECHOCARD PULSE WAVE W/SPECTRAL F-UP/LMTD STD Baldomero, Mariah S, DO [facility] 2, [address] [place] [address] Referral ID Status Reason Start Date Expiration Date Visits Requested Visits Authorized [id number] Authorized Perform Procedure 12/25/2023 12/24/2024 1 1 Additional Source Comments (unrecognized sect ion and content) No Status Records FoundNo Status Records FoundNo Status Records FoundNo Status Records FoundNo Status Records FoundNo Status Records Found INFORMATION SOURCE (unrecogn ized section and content) DATE CREATED AUTHOR 02/11/2018 [facility] DATE CREATED AUTHOR AUTHOR'S ORGANIZ ATION 10/23/2021 [facility] DATE CREATED AUTHOR AUTHOR'S ORGANIZ ATION 12/23/2023 [facility] DATE CREATED AUTHOR AUTHOR'S ORGANIZ ATION 01/16/2024 [facility] EPIC DATE CREATED AUTHOR AUTHOR'S ORGANIZ ATION 02/12/2024 [facility] DATE CREATED AUTHOR AUTHOR'S ORGANIZ ATION 02/14/2024 [facility] Care Teams (unrecognized sec tion and content) Team Status: Active Member Role Status Dates Favian Edge MD Primary Care Provider Active Team Status: Inactive Member Role Status Dates Favian Edge MD Primary Care Provider Active Start: December 18, 2023 End: December 22, 2023 Souleymane Alexandre DO Admit Provider, Att ending Provider Active Start: December 18, 2023 End: December 22, 2023 Team Status: Active Member Role Status Dates Favian Edge MD Primary Care Provider Active Start: December 18, 2023 Souleymane Alexandre DO Admit Provider, Oth er Provider Active Start: December 18, 2023 Edwin Juares MD Attending Provider Active Start: December 18, 2023 Canvas Cutter Machine Relationship Specialty Start Date End Date Favian Edge MD [address] [facility] [place] [address] PCP - General Family Medicine 12/18/23 Shy Spears, cooler workerAssociate Chemist 12/19/23 Canvas Cutter Machine Relationship Specialty Start Date End Date Favian Edge MD [address] [place] [address] PCP - General Family Medicine 12/18/23 Shy Spears RN Care Associate Chemist 12/19/23 Canvas Cutter Machine Relationship Specialty Start Date End Date Favian Edge MD [address] [place] [address] (Fax) PCP - General Family Medicine 12/18/23 Shy Spears, cooler workerAssociate Chemist 12/19/23 Reason for Visit (unrecogniz ed section and content) Reason Comments Follow-up [facility] discharge post STEMI & staged PCI Specialty Diagnoses / Procedures Referred By Rosendo whittaker Referred To Contact Cardiology Diagnoses ASHD (arteriosclerotic heart disease) ST elevation myocardial infarction (STEMI), unspecified artery (Multi) History of PTCA Shortness of breath Cardiomyopathy, ischemic Congestive heart failure, unspecified HF chronicity, unspecified heart failure type (Multi) Pericardial effusion (HHS-HCC) Procedures Transthoracic Echo Limited LA ECHO TRANSTHORC R-T 2D W/WO M-MODE REC F-UP/LMTD LA DOP ECHOCARD COLOR FLOW VELOCITY MAPPING LA DOP ECHOCARD PULSE WAVE W/SPECTRAL F-UP/LMTD STD Mariah Alexandre DO [address] [place] [address], [address] [address] Referral ID Status Reason Start Date Expiration Date Visits Requested Visits Authorized [id number] Authorized Perform Procedure 12/25/2023 12/24/2024 1 1 Reason Comments Follow-up echo Specialty Diagnoses / Procedures Referred By Rosendo whittaker Referred To Contact Cardiology Diagnoses ASHD (arteriosclerotic heart disease) Procedures Follow Up In Cardiology Mariah Alexandre DO [facility] 2, [address] [address] Aleksandr Mccormack, FIELD EXAMINER-FIELD INSTRUCTOR [address] [place] [address] 2, [address] [place] [address] Referral ID Status Reason Start Date Expiration Date V isits Requested Visits Authorized [id number] Authorized 12/25/2023 12/24/2024 1 1 FOR RECORDS PERTAINING TO PATIENTS WHO ARE OR HAVE BEEN ENROLLED IN A CHEMICAL DEPENDENCY/SUBSTANCEABUSE PROGRAM, SOME INFORMATION MAY BE OMITTED. This clinical summary was aggregated from multiple sources. Caution should be exercised in using it in the provision of clinical care. This summary normalizes information from multiple sources, and as a consequence, information in this document may materially change the coding, format and clinical context of patient data. In addition, data may be omitted in some cases. CLINICAL DECISIONS SHOULD BE BASED ON THE PRIMARY CLINICAL RECORDS. [employer] [facility]. provides no warranty or guarantee of the accuracy or completeness of information in this document.
== END 2024-02-18 13:24 | disposition home or self-care (01) ==
LOC: LAB 13:26
PROVIDERS: PCP Family Medicine; Visit Provider Nurse Practitioner
DX: E78.2 Mixed hyperlipidemia (principal); Z98.61 Coronary angioplasty status; I21.9 Acute myocardial infarction, unspecified; I25.10 Atherosclerotic heart disease of native coronary artery without angina pectoris; I25.5 Ischemic cardiomyopathy; I31.39 Other pericardial effusion (noninflammatory); J90 Pleural effusion, not elsewhere classified
CPT/HCPCS: 71046; 93798

== ENCOUNTER 2024-02-20 07:05 | Outpatient (RCR) | payer OTHER, SELFPAY ==
--- NOTE | 2023-12-31 14:36 | CR1_ITS ---
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
--- NOTE | 2024-01-27 14:33 | CR1_ITS ---
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
--- NOTE | 2024-02-25 09:23 | CR1_ITS ---
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
--- NOTE | 2024-03-30 07:22 | CR1_ITS ---
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
--- NOTE | 2024-04-02 07:18 | CR1_ITS ---
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
== END 2024-02-22 23:59 | disposition home or self-care (01) ==
LOC: CR 07:05
PROVIDERS: PCP Family Medicine; Visit Provider Internal Medicine Cardiovascular Disease
DX: Z98.61 Coronary angioplasty status (principal); I21.9 Acute myocardial infarction, unspecified
CPT/HCPCS: 93798

== ENCOUNTER 2024-02-23 07:00 | Outpatient (RCR) | payer BC, SELFPAY | END 2024-04-05 07:19 | disposition home or self-care (01) | LOC: CR 07:00 | PROVIDERS: PCP Family Medicine; Visit Provider Internal Medicine Cardiovascular Disease | DX: Z98.61 Coronary angioplasty status (principal); I25.2 Old myocardial infarction | CPT/HCPCS: 93798 ==

== ENCOUNTER 2024-02-23 09:26 | Outpatient (OUT) | payer BC, SELFPAY ==
[2024-02-23 10:47] LABS: Alanine Aminotransferase 27 U/L (16-63); Anion Gap 13.5; Aspartate Amino Transferase 12 U/L (15-37); BUN Creatinine Ratio 22.1; Calcium 9.4 mg/dL (8.5-10.1); Carbon Dioxide 26.8 mmol/L (21.0-32.0); Chloride 102 mmol/L (98-107); Chol HDL Ratio 4.1; Cholesterol 177 mg/dL (<=200); Estimated GFR (African America >60 (>=60); Estimated GFR (Non-African Ame >60 (>=60); Glucose 100 mg/dL (74-106); HDL Cholesterol 43 mg/dL (40-60); LDL Cholesterol Calculated 117.6 mg/dL; Potassium 4.3 mmol/L (3.5-5.1); Sodium 138 mmol/L (136-145); Triglycerides 82 mg/dL (<=150); VLDL CHOLESTEROL 16.4 mg/dL
== END 2024-02-23 09:27 | disposition home or self-care (01) ==
LOC: LAB 09:29
PROVIDERS: PCP Family Medicine; Visit Provider Nurse Practitioner
DX: I25.10 Atherosclerotic heart disease of native coronary artery without angina pectoris (principal); E78.2 Mixed hyperlipidemia; I25.5 Ischemic cardiomyopathy
CPT/HCPCS: 36415; 80048; 80061; 84450; 84460